=== PATIENT | female | born 1955 | race Caucasian/White ===

== ENCOUNTER → 2018-01-01 | Outpatient (REF) | payer OTHER ==
[2018-01-01 14:17] LABS: BASO % 0.7 % (0.0-1.0); EOS # 0.1 10^3/uL (0.0-0.50); EOS % 2.4 % (0.0-3.0); HEMATOCRIT 44.7 % (36.0-47.0); HEMOGLOBIN 14.4 g/dl (12.0-15.5); IMMATURE GRANULOCYTE % 0.2 % (0-3.0); LYMPH # 0.7 10^3/uL (1.5-4.5); LYMPH % 16.1 % (24.0-44.0); MEAN CORPUSCULAR HEMOGLOBIN 30.3 pg (27.0-33.0); MEAN CORPUSCULAR HGB CONC 32.2 g/dl (32.0-36.5); MEAN CORPUSCULAR VOLUME 93.9 fl (80.0-96.0); MONO # 0.5 10^3/uL (0.0-0.8); MONO % 9.8 % (0.0-5.0); NEUTROPHILS # 3.3 10^3/uL (1.8-7.7); NEUTROPHILS % 70.8 % (36.0-66.0); PLATELET COUNT, AUTOMATED 233 10^3/uL (150-450); RED BLOOD COUNT 4.76 10^6/uL (4.00-5.40); RED CELL DISTRIBUTION WIDTH 12.8 % (11.5-14.5); WHITE BLOOD COUNT 4.6 10^3/uL (4.0-10.0)
[2018-01-01 15:04] LABS: ALBUMIN 4.3 GM/DL (3.2-5.2); ALBUMIN/GLOBULIN RATIO 1.48 (1.00-1.93); ALKALINE PHOSPHATASE 76 U/L (45-117); ALT/SGPT 19 U/L (12-78); ANION GAP 6 MEQ/L (8-16); AST/SGOT 16 U/L (7-37); BILIRUBIN,TOTAL 0.3 MG/DL (0.2-1.0); BLOOD UREA NITROGEN 14 MG/DL (7-18); CALCIUM LEVEL 9.4 MG/DL (8.8-10.2); CARBON DIOXIDE LEVEL 29 MEQ/L (21-32); CHLORIDE LEVEL 104 MEQ/L (98-107); FOLATE 12.3 NG/ML; FREE THYROXINE INDEX 2.2 % (1.3-4.8); GLOMERULAR FILTRATION RATE > 60.0 (>45); GLUCOSE, FASTING 96 MG/DL (70-100); POTASSIUM SERUM 4.6 MEQ/L (3.5-5.1); RHEUMATOID FACTOR QUANT < 10.0 IU/ML (<15.0); SODIUM LEVEL 139 MEQ/L (136-145); T UPTAKE 31 % (30-39); THYROID STIMULATING HORMONE 0.762 uIU/ML (0.358-3.740); THYROXINE (T4) 7.1 UG/DL (4.5-12.0); TOTAL PROTEIN 7.2 GM/DL (6.4-8.2); VITAMIN B12 LEVEL 254 PG/ML
[2018-01-01 15:37] LABS: ERYTHROCYTE SEDIMENTATION RATE 2 mm/hr (0-30)
[2018-01-01 17:13] LABS: ESTIMATED AVERAGE GLUCOSE 108 MG/DL (60-110); HEMOGLOBIN A1c 5.4 %
[2018-01-06 09:11] LABS: DRVV SCREEN 32.1 SEC
[2018-01-06 09:14] LABS: PTT LUPUS TYPE ANTICOAG SCREEN 0.8 (0-1.2)
[2018-01-06 09:51] LABS: ALBUMIN 4.59 GM/DL (3.29-5.55); ALBUMIN % 63.7 % (55.8-66.1); ALPHA-1-GLOBULIN % 3.9 % (2.9-4.9); ALPHA-1-GLOBULINS 0.28 GM/DL (0.17-0.41); ALPHA-2-GLOBULINS 0.71 GM/DL (0.42-0.99); ALPHA-2-GLOBULINS % 9.9 % (7.1-11.8); BETA-1-GLOBULINS % 5.6 % (4.7-7.2); BETA-2-GLOBULINS 0.33 GM/DL (0.19-0.55); BETA-2-GLOBULINS % 4.6 % (3.2-6.5); GAMMA GLOBULIN % 12.3 % (11.1-18.8); GAMMA GLOBULINS 0.89 GM/DL (0.65-1.58)
[2018-01-07 00:07] LABS: ANCA-ATYPICAL <1:20 titer (Neg:<1:20); ANTI DOUBLE STRAND-DNA AB 3 IU/mL (0-9); ANTINUCLEAR ANTIBODIES DIRECT Positive (Negative); CYTOPLASMIC NEUTROP AB ANCA-C <1:20 titer (Neg:<1:20); PERINUCLEAR AB ANCA-P <1:20 titer (Neg:<1:20); RNP ANTIBODIES 2.1 AI (0.0-0.9); SJOGREN'S ANTI SS-A <0.2 AI (0.0-0.9); SJOGREN'S ANTI SS-B <0.2 AI (0.0-0.9); SMITH ANTIBODIES <0.2 AI (0.0-0.9); VITAMIN B1 LEVEL WHOLE BLOOD 104.9 nmol/L (66.5-200.0); VITAMIN B6,PYRIDOXAL PHOSPHATE 3.8 ug/L (2.0-32.8); VITAMIN E(ALPHA TOCOPHEROL) 9.7 mg/L (9.0-29.0); VITAMIN E(GAMMA TOCOPHEROL) 0.7 mg/L (0.5-4.9)
== END ==
LOC: M LABNEURO 09:22
DX: G62.9 Polyneuropathy, unspecified (principal)

== ENCOUNTER 2018-01-03 07:55 | Emergency (ER) | payer OTHER ==
[2018-01-03 08:37] LABS: BASO % 0.3 % (0.0-1.0); EOS # 0.1 10^3/uL (0.0-0.50); EOS % 1.5 % (0.0-3.0); HEMATOCRIT 41.9 % (36.0-47.0); HEMOGLOBIN 14.2 g/dl (12.0-15.5); IMMATURE GRANULOCYTE % 0.5 % (0-3.0); LYMPH # 0.8 10^3/uL (1.5-4.5); LYMPH % 12.7 % (24.0-44.0); MEAN CORPUSCULAR HEMOGLOBIN 30.1 pg (27.0-33.0); MEAN CORPUSCULAR HGB CONC 33.9 g/dl (32.0-36.5); MEAN CORPUSCULAR VOLUME 88.8 fl (80.0-96.0); MONO # 0.5 10^3/uL (0.0-0.8); MONO % 7.6 % (0.0-5.0); NEUTROPHILS # 5.1 10^3/uL (1.8-7.7); NEUTROPHILS % 77.4 % (36.0-66.0); PLATELET COUNT, AUTOMATED 233 10^3/uL (150-450); RED BLOOD COUNT 4.72 10^6/uL (4.00-5.40); RED CELL DISTRIBUTION WIDTH 12.2 % (11.5-14.5); WHITE BLOOD COUNT 6.6 10^3/uL (4.0-10.0)
[2018-01-03] MEDS: diphenhydrAMINE INJ 50MG/ML VIAL (J1200) IV (08:37)
[2018-01-03] MEDS: METOCLOPRAMIDE INJ 10MG/2ML VIAL (J2765) IV (08:37)
[2018-01-03] MEDS: NS 1,000 ML IV (08:38)
[2018-01-03 09:06] LABS: ALBUMIN/GLOBULIN RATIO 1.38 (1.00-1.93); ALKALINE PHOSPHATASE 68 U/L (45-117); ALT/SGPT 21 U/L (12-78); ANION GAP 10 MEQ/L (8-16); AST/SGOT 16 U/L (7-37); BILIRUBIN,TOTAL 0.5 MG/DL (0.2-1.0); BLOOD UREA NITROGEN 8 MG/DL (7-18); CALCIUM LEVEL 9.5 MG/DL (8.8-10.2); CARBAMAZEPINE (TEGRETOL) LEVEL 4.2 UG/ML (4.0-10.0); CARBON DIOXIDE LEVEL 26 MEQ/L (21-32); CHLORIDE LEVEL 96 MEQ/L (98-107); CREATININE FOR GFR 0.78 MG/DL (0.55-1.30); GLOMERULAR FILTRATION RATE > 60.0 (>45); GLUCOSE, FASTING 117 MG/DL (70-100); SODIUM LEVEL 132 MEQ/L (136-145); TOTAL PROTEIN 6.9 GM/DL (6.4-8.2)
[2018-01-03] MEDS: KETOROLAC 30 MG/ML VIAL (J1885) IV (09:36)
[2018-01-03 09:51] LABS: ERYTHROCYTE SEDIMENTATION RATE 2 mm/hr (0-30)
== END 2018-01-03 11:15 | disposition home or self-care (01) ==
LOC: M ED 07:55
DX: G43.909 Migraine, unspecified, not intractable, without status migrainosus (principal); Z88.0 Allergy status to penicillin
CPT/HCPCS: J1200

== ENCOUNTER → 2019-01-05 | Outpatient (CLI) | payer OTHER ==
[~2019-01-05] MED LIST: CARB10TACH; NABU-119
[2019-01-05 14:53] LABS: BASO # 0.1 10^3/uL (0.0-0.2); BASO % 0.8 % (0.0-1.0); EOS # 0.1 10^3/uL (0.0-0.5); EOS % 2.3 % (0.0-3.0); HEMATOCRIT 45.1 % (36.0-47.0); HEMOGLOBIN 14.4 g/dl (12.0-15.5); LYMPH # 1.7 10^3/uL (1.5-5.0); LYMPH % 28.5 % (24.0-44.0); MEAN CORPUSCULAR HEMOGLOBIN 29.6 pg (27.0-33.0); MEAN CORPUSCULAR HGB CONC 31.9 g/dl (32.0-36.5); MEAN CORPUSCULAR VOLUME 92.6 fl (80.0-96.0); MONO # 0.5 10^3/uL (0.0-0.8); MONO % 8.3 % (0.0-5.0); NEUTROPHILS # 3.6 10^3/uL (1.5-8.5); NEUTROPHILS % 59.6 % (36.0-66.0); PLATELET COUNT, AUTOMATED 274 10^3/uL (150-450); RED BLOOD COUNT 4.87 10^6/uL (4.00-5.40)
[2019-01-05 15:29] LABS: ERYTHROCYTE SEDIMENTATION RATE 5 mm/hr (0-30)
[2019-01-05 15:30] LABS: ALT/SGPT 18 U/L (12-78); BILIRUBIN,TOTAL 0.4 MG/DL (0.2-1.0); BLOOD UREA NITROGEN 12 MG/DL (7-18); CALCIUM LEVEL 9.8 MG/DL (8.8-10.2); CARBON DIOXIDE LEVEL 31 MEQ/L (21-32); CHLORIDE LEVEL 106 MEQ/L (98-107); CREATININE FOR GFR 1.08 MG/DL (0.55-1.30); GLOMERULAR FILTRATION RATE 54.5 (>45); GLUCOSE, FASTING 85 MG/DL (70-100); POTASSIUM SERUM 4.2 MEQ/L (3.5-5.1); RHEUMATOID FACTOR QUANT < 10.0 IU/ML (<15.0); SODIUM LEVEL 140 MEQ/L (136-145); THYROID STIMULATING HORMONE 0.641 uIU/ML (0.358-3.740); TOTAL PROTEIN 7.4 GM/DL (6.4-8.2)
[2019-01-05 15:33] LABS: TOTAL 25(OH) VITAMIN D 50.2 NG/ML (30.0-100.0)
[2019-01-07 14:51] LABS: ANTI DOUBLE STRAND-DNA AB 2 IU/mL (0-9); ANTINUCLEAR ANTIBODIES DIRECT Positive (Negative); RNP ANTIBODIES 1.6 AI (0.0-0.9); SJOGREN'S ANTI SS-A <0.2 AI (0.0-0.9); SJOGREN'S ANTI SS-B <0.2 AI (0.0-0.9); SMITH ANTIBODIES <0.2 AI (0.0-0.9)
== END ==
LOC: M LAB 14:14
PROVIDERS: ATTEND Psychiatry & Neurology Neurology
DX: R51 Headache (principal)

== ENCOUNTER 2019-11-04 17:51 | Inpatient (IN) | payer OTHER ==
[~2019-11-04] VITALS: Ht 167.6 cm; Wt 63.6 kg
[~2019-11-04 17:51] MED LIST changes: -NABU-119; +NABU-53
[2019-11-04] MEDS ORDERED: AMOX875T (18:04)
[2019-11-04] MEDS ORDERED: FLUTISP (18:04)
[2019-11-04] MEDS ORDERED: GABA-845 PO (18:04)
[2019-11-04] MEDS ORDERED: ONDANSETRON 4MG/2ML VIAL IV ONE (19:00)
[2019-11-04] MEDS ORDERED: diphenhydrAMINE 50MG/ML VIAL (J1200) IV ONE (19:00)
[2019-11-04] MEDS ORDERED: NS 1,000 ML IV ONE (19:00)
[2019-11-04] MEDS ORDERED: KETOROLAC 30 MG/ML 1ML VIAL IV ONE (19:05)
[2019-11-04 19:48] LABS: BASO % 0.2 % (0.0-1.0); EOS % 0.6 % (0.0-3.0); HEMATOCRIT 42.9 % (36.0-47.0); HEMOGLOBIN 14.5 g/dl (12.0-15.5); LYMPH % 5.5 % (24.0-44.0); MEAN CORPUSCULAR HEMOGLOBIN 29.9 pg (27.0-33.0); MEAN CORPUSCULAR HGB CONC 33.8 g/dl (32.0-36.5); MEAN CORPUSCULAR VOLUME 88.5 fl (80.0-96.0); MONO % 7.5 % (0.0-5.0); NEUTROPHILS % 85.7 % (36.0-66.0); PLATELET COUNT, AUTOMATED 226 10^3/uL (150-450); RED BLOOD COUNT 4.85 10^6/uL (4.00-5.40); WHITE BLOOD COUNT 12.3 10^3/uL (4.0-10.0)
[2019-11-04 19:49] LABS: EOS # 0.1 10^3/uL (0.0-0.5); LYMPH # 0.7 10^3/uL (1.5-5.0); MONO # 0.9 10^3/uL (0.0-0.8); NEUTROPHILS # 10.6 10^3/uL (1.5-8.5)
[2019-11-04 20:15] LABS: ALBUMIN 3.1 GM/DL (3.2-5.2); ALT/SGPT 17 U/L (12-78); BILIRUBIN,DIRECT 0.2 MG/DL (0.0-0.2); BILIRUBIN,TOTAL 0.6 MG/DL (0.2-1.0); BLOOD UREA NITROGEN 8 MG/DL (7-18); CALCIUM LEVEL 8.8 MG/DL (8.8-10.2); CARBON DIOXIDE LEVEL 27 MEQ/L (21-32); CHLORIDE LEVEL 95 MEQ/L (98-107); CREATININE FOR GFR 0.63 MG/DL (0.55-1.30); GLOMERULAR FILTRATION RATE > 60.0 (>45); GLUCOSE, FASTING 127 MG/DL (70-100); LIPASE 59 U/L (73-393); POTASSIUM SERUM 4.3 MEQ/L (3.5-5.1); SODIUM LEVEL 128 MEQ/L (136-145); TOTAL PROTEIN 6.5 GM/DL (6.4-8.2)
[2019-11-04] MEDS ORDERED: ISOVUE-370 76% 100ML VIAL As Ordered ONE (20:30)
--- NOTE | 2019-11-04 21:27 | REPVR ---
PROCEDURE INFORMATION: Exam: CT Head Without Contrast Exam date and time: 11/04/2019 8:47 PM Age: 64 years old Clinical indication: Pain; Headache; Additional info: Inc headache TECHNIQUE: Imaging protocol: Computed tomography of the head without contrast. Radiation optimization: All CT scans at this facility use at least one of these dose optimization techniques: automated exposure control; mA and/or kV adjustment per patient size (includes targeted exams where dose is matched to clinical indication); or iterative reconstruction. COMPARISON: CT Head without contrast 01/03/2018 8:25 AM FINDINGS: Brain: There is no acute cortical infarction, intracranial hemorrhage or mass. Ventricles: No ventriculomegaly. Bones/joints: Unremarkable. No acute fracture. Sinuses: Visualized sinuses are unremarkable. No fluid levels. Mastoid air cells: Visualized mastoid air cells are well aerated. Soft tissues: Unremarkable. IMPRESSION: No acute intracranial abnormality. Electronically signed by: Jeimy Franklin On 11/04/2019 21:27:05 PM
--- NOTE | 2019-11-04 21:43 | REPVR ---
PROCEDURE INFORMATION: Exam: CT Abdomen And Pelvis With Contrast Exam date and time: 11/04/2019 8:47 PM Age: 64 years old Clinical indication: Abdominal pain; Localized; Right lower quadrant (rlq); Additional info: Rlq pain TECHNIQUE: Imaging protocol: Computed tomography of the abdomen and pelvis with intravenous contrast. Radiation optimization: All CT scans at this facility use at least one of these dose optimization techniques: automated exposure control; mA and/or kV adjustment per patient size (includes targeted exams where dose is matched to clinical indication); or iterative reconstruction. Contrast material: ISOVUE 370; Contrast volume: 100 ml; Contrast route: INTRAVENOUS (IV); COMPARISON: No relevant prior studies available. FINDINGS: Lungs: There is interstitial prominence and pleuroparenchymal scarring at the lung bases. No pleural effusion. Liver: There are no focal liver lesions. There is mild periportal edema. Gallbladder and bile ducts: There is marked distension of the gallbladder with wall thickening. No radiopaque calculi are apparent. There is pericholecystic inflammation. The common bile duct is enlarged to 7.5 mm in width. Diffuse soft tissue density material is seen in the alka hepatis in there is low density in the head of the pancreas. The inflammation also surrounds the C sweep of the duodenum. Pancreas: See "Gallbladder and bile ducts" finding. Spleen: The spleen is normal. Adrenals: The adrenal glands are unremarkable. Kidneys and ureters: The kidneys are unremarkable however there is right perinephric stranding. Stomach and bowel: There is no evidence of intestinal obstruction. Appendix: The appendix is unremarkable. Intraperitoneal space: There is fluid in the right pericolic gutter. Vasculature: There is no evidence of an infrarenal abdominal aortic aneurysm. The arteries demonstrates diffuse mild atherosclerotic calcification. Lymph nodes: No enlarged lymph nodes. Bladder: The bladder is unremarkable. Reproductive: Unremarkable as visualized. Bones/joints: No significant skeletal lesions. Soft tissues: There is a fat-containing umbilical hernia. IMPRESSION: There is distension of the gallbladder and thickening of the gallbladder wall and pericholecystic inflammation extending throughout the alka hepatis which could be due to acute acalculous cholecystitis however there could be an obstructing lesion at the Ampulla of Vater or within the distal biliary system, pancreatic head or duodenum which all appear to be involved in the inflammatory/infiltrative process. Electronically signed by: Jeimy Franklin On 11/04/2019 21:42:46 PM
--- NOTE | 2019-11-04 23:29 | REPVR ---
PROCEDURE INFORMATION: Exam: US Abdomen, Limited; Right Upper Quadrant Exam date and time: 11/04/2019 10:47 PM Age: 64 years old Clinical indication: Abdominal pain; Epigastric; Additional info: Right abd pain TECHNIQUE: Imaging protocol: US abdomen. Real time ultrasound with image documentation. Limited exam focused on the right upper quadrant. COMPARISON: CT ABD/PEL W/IV CONTRAST ONLY 11/04/2019 8:42 PM FINDINGS: Liver: There is uniform echogenicity of the liver. Gallbladder: There is distention of the gallbladder measuring 4.5 cm in AP dimension. There is thick sludge in the dependent portion of the gallbladder and suspect gravel-like gallstones. There is edema along the margins of the gallbladder. Recent CT examination demonstrates extreme edema along the gallbladder wall consistent with acute changes of cholecystitis. The CT also demonstrates very severe thickening of the duodenal C loop inseparable from the margin of gallbladder. This probably is the result of severe inflammation at the 1st portion of the duodenum. Possibility of erosion or severe ulceration in the region of the duodenal C loop is a definite concern. There is severe edema along the margins of the duodenal C loop and inseparable from the head of the pancreas. This produces mass effect on the head of the pancreas. Common bile duct: On the ultrasound the common bile duct measures 1 cm which is abnormally enlarged. This may be secondary to the severe inflammation at the ampula and 1st portion of the duodenum. Severe swelling and inflammation including phlegmon extends from the gallbladder and duodenal C loop inferiorly along the right psoas muscle. Lesion or ulceration 1st portion of the duodenum could be present. Right kidney: There is no evidence of hydronephrosis right kidney. IMPRESSION: 1. When comparing the ultrasound with the CT examination there is severe thickening and edema along the margins of the gallbladder consistent with acute changes of cholecystitis. Thick sludge with possible tiny gravel-like gallstones within the gallbladder. The margin of the gallbladder and duodenal C-loop are inseparable and there is gross thickening of the wall of the 1st portion of the duodenum. Severe inflammation of the duodenum or even a ulcer crater or mass lesion could be present. The severely thickened duodenum impresses on the head of the pancreas. The inflammation and phlegmon from this area extends along the right psoas muscle and infrarenal space. 2. The common bile duct is dilated at 1 cm and this may be secondary to partial obstruction by the massive amount of inflammation and swelling at the ampula and duodenum. Electronically signed by: Agustín Mcgrath On 11/04/2019 23:28:52 PM
[2019-11-05] MEDS ORDERED: AMPICILLIN SOD/SULBACTAM SOD 3 GM in D5W MINI-BAG PLUS 100 ML IV ONE (00:45)
--- NOTE | 2019-11-05 01:14 | HPEPDOC ---
[facility] Medical History & Physical Date of Admission Nov 05, 2019 Date of Service: Nov 05, 2019 Attending Physician: Blanca Morgan MD History and Physical CHIEF COMPLAINT: headache, back and abdominal pain HISTORY OF PRESENT ILLNESS: Patient is a 64 y/o F with PMH trigeminal neuralgia, hx of migraine headaches, rheumatoid arthritis who presented to ER with worsening neck, headache, right back and RU/RLQ pain since 11/01/19. She initially though back pain was soreness from gardening outside but when it persisted with the onset of headache and right face pain, she went to see her dentist. In the past, her trigeminal neuralgia has worsened with dental infections but her dentist ruled that out. He thought all her pains were 2/2 to trigeminal pain, neuropathic pain of some sort and headache 2/2 to sinus infection so he prescribed antibiotic. Along with the face, neck and headache pains she was also having concomitant abdominal pain, 7/10, constant relieved only with laying a certain way. She took home meds of gabapentin and carbamazepine for trigeminal neuralgia which helped with the face pain but headache, neck pain, abdominal pain persisted. Other associated symptoms include: decreased Po intake, increased constipation, nausea with several episodes of vomiting, weakness, sensitivity to light. Denies chest pain, shortness of breath, fevers, chills, vision changes. In the ER, VS were stable. Na 128, WBC 12.3, UA neg. CT abd/pelvis: questionable acute acalculous cholecystitis vs. obstructing lesion at ampulla of vater or within distal biliary system. US abd: changes of acute cholecystitis, severely thickened duodenum, inflammation from this area extends along right psoas muscle and infrarenal space. CBD inflammation 1 cm. GI was called and will see on the floor to determine if ERCP needed. Surgery service also called in ER and they feel GI will likely need to intervene first. Patient was admitted for acute cholecystitis, r/o obstruction and likely migraine headache. ROS: Negative except for what is mentioned above. PAST MEDICAL HISTORY: 1. Trigeminal neuralgia 2. History of migraine headaches 3. Rheumatoid arthritis PAST SURGICAL HISTORY: 1. Ovary cyst removal 2. Right knee surgery SOCIAL HISTORY: Denies smoking, illicit drug use. Social alcohol use rarely. Lives with her locally. Retired. PCP- [facility], neurology-Dr. Bradley FAMILY HISTORY: Father: recurrent diverticulitis. at 83 y/o Mother: arthritis. at 97 y/o ALLERGIES: Please see below. HOME MEDICATIONS: Please see below. PHYSICAL EXAMINATION: VITAL SIGNS: Stable, see below GENERAL APPEARANCE: Appears uncomfortable in bed, holding hands over eyes, communicates well HEENT: AT/NC, photosensitivity to light on exam but PERRLA, EOM intact, dry oral mucosa CARDIOVASCULAR: S1S2 +, no M/R/G LUNGS: CTAB, no W/R/R ABDOMEN: + carrillo's sign, BS + in 4 quadrants, tender to palpation around right flank, nondistended, soft MUSCULOSKELETAL: No atrophy of extremities INTEGUMENTARY: normal skin turgor, no rashes EXTREMITIES: No edema, cyanosis or clubbing. Pulses + in all ext NEUROLOGICAL: CN 2-12 intact, no focal deficits PSYCHIATRIC: Mood and affect appropriate LABORATORY DATA: See below. IMAGING: CT abd/pelvis: There is distension of the gallbladder and thickening of the gallbladder wall and pericholecystic inflammation extending throughout the alka hepatis which could be due to acute acalculous cholecystitis however there could be an obstructing lesion at the Ampulla of Vater or within the distal biliary system, pancreatic head or duodenum which all appear to be involved in the inflammatory/infiltrative process. US abd: 1. When comparing the ultrasound with the CT examination there is severe thickening and edema along the margins of the gallbladder consistent with acute changes of cholecystitis. Thick sludge with possible tiny gravel-like gallstones within the gallbladder. The margin of the gallbladder and duodenal C-loop are inseparable and there is gross thickening of the wall of the 1st portion of the duodenum. Severe inflammation of the duodenum or even a ulcer crater or mass lesion could be present. The severely thickened duodenum impresses on the head of the pancreas. The inflammation and phlegmon from this area extends along the right psoas muscle and infrarenal space. 2. The common bile duct is dilated at 1 cm and this may be secondary to partial obstruction by the massive amount of inflammation and swelling at the ampula and duodenum. ASSESSMENT: 64 y/o F with PMH trigeminal neuralgia, hx of migraine headaches, rheumatoid arthritis who was admitted for acute cholecystitis, r/o bilary obstruction and headache 2/2 to dehydration and possible migraine. PLAN: 1. Abdominal pain likely 2/2 to acute cholecystitis, r/o obstructive biliary cause -WBC 12.3, CT abd/pelvis and US above. Afebrile -Pt has allergy to IM PCN only she states- patient is not likely truly allergic if she can tolerate IM PCN. Starting on Zosyn IV. -GI and surgery are both consulted, they will see today -F/u BCx -Toradol, morphine PRN for pain, IVFs, NPO until cleared by consultation services 2. Headache likely multifactorial to migraine but also dehydration -IV toradol, IVFs 3. Hyponatremia likely 2/2 to dehydration. -Has not eaten or drank much since 11/01/19 -F/u urine osmol, urine sodium, daily labs -IVFs at 125 cc/hr 4. Trigeminal neuralgia -Face pain improved since taking PO carbamazepine, gabapentin -Can decide to resume when taking PO 5. Right back pain likley 2/2 to inflammation of right psoas muscle and infrarenal space seen on US abd -Toradol IV, IVFs, OOBTC TID and with meals -PT/OT when acute process improves 6. GI px. -PPI IV 7. DVT px -Enoxaparin daily DISPOSITION: GI and surgery to both see patient today, will decide what patient needs going forward. PT/OT when cleared. Plan is discharge home when medically improved. Vital Signs Vital Signs Date Time Temp Pulse Resp B/P (MAP) Pulse Ox O2 Delivery O2 Flow Rate FiO2 11/04/19 22:26 98.1 86 18 135/72 (93) 98 Room Air Laboratory Data Labs 24H Laboratory Tests 2 11/04/19 19:33: Immature Granulocyte % (Auto) 0.5, Neutrophils (%) (Auto) 85.7H, Lymphocytes (%) (Auto) 5.5L, Monocytes (%) (Auto) 7.5H, Eosinophils (%) (Auto) 0.6, Basophils (%) (Auto) 0.2, Neutrophils # (Auto) 10.6H, Lymphocytes # (Auto) 0.7L, Monocytes # (Auto) 0.9H, Eosinophils # (Auto) 0.1, Basophils # (Auto) 0.0, Nucleated Red Blood Cells % (auto) 0.0, Anion Gap 6L, Glomerular Filtration Rate > 60.0, Calcium Level 8.8, Total Bilirubin 0.6, Direct Bilirubin 0.2, Aspartate Amino Transf (AST/SGOT) 10, Alanine Aminotransferase (ALT/SGPT) 17, Alkaline Phosphatase 77, Total Protein 6.5, Albumin 3.1L, Albumin/Globulin Ratio 0.9L, Lipase 59L 11/04/19 21:17: Urine Color STRAW, Urine Appearance CLEAR, Urine pH 7.0, Urine Specific [place] 1.013, Urine Protein NEGATIVE, Urine Glucose (UA) NEGATIVE, Urine Ketones TRA CEH, Urine Blood NEGATIVE, Urine Nitrite NEGATIVE, Urine Bilirubin NEGATIVE, Urine Urobilinogen 0.2, Urine Leukocyte Esterase NEGATIVE, Urine WBC (Auto) 0, Urine RBC (Auto) 2, Urine Hyaline Casts (Auto) 0, Urine Bacteria (Auto) NEGATIVE, Urine Squamous Epithelial Cells 0, Urine Sperm (Auto) CBC/BMP Laboratory Tests 11/04/19 19:33 Home Medications Scheduled Gabapentin (Gabapentin) 400 Mg Capsule, 300 MG PO BID Miscellaneous Medications Amoxicillin (Amoxicillin) 875 Mg Tablet Carbamazepine (Carbamazepine) 100 Mg Chew Fluticasone Propionate (Fluticasone Propionate) 16 Gm [place].susp Nabumetone (Nabumetone) 750 Mg Tab Allergies Coded Allergies: Penicillins (Verified Allergy, Intermediate, RASH, 11/04/19) A-FIB/CHADSVASC A-FIB History Current/History of A-Fib/PAF?: No Current PO Anticoag Therapy: No Age/Risk Factor Scoring CHADSVASC: CHADSVASC Response (Comments) Value Age Risk Factor Age < 65 years old 0 Gender Risk Factor Female 1 Hx of CHF No 0 Hx of HTN No 0 Hx of Stroke/TIA/or VTE No 0 Hx of Diabetes No 0 Hx of Vascular Disease No 0 Total 1 Treatment Treatment ordered: Other Other anticoagulant ordered: enoxaparin Blanca Morgan MD Nov 05, 2019 01:14
[2019-11-05] MEDS ORDERED: NS 1,000 ML IV SCH (01:15)
[2019-11-05] MEDS ORDERED: KETOROLAC 30 MG/ML 1ML VIAL IV PRN (02:15)
[2019-11-05] MEDS ORDERED: MORPHINE 2 MG/ML 1ML VIAL (J2270) IV PRN ×2 (02:15→11:30)
[2019-11-05] MEDS: NS 1,000 ML IV SCH ×4 (02:19→12:11)
[2019-11-05 02:30] VITALS: BP 134/68
[2019-11-05] MEDS ORDERED: CARB10TACH PO (03:35)
[2019-11-05] MEDS ORDERED: GABA-843 PO (03:35)
[2019-11-05] MEDS ORDERED: FLON1SPR (03:35)
[2019-11-05] MEDS ORDERED: NABU-53 PO (03:35)
[2019-11-05] MEDS ORDERED: AMOX875T PO (03:35)
[2019-11-05 03:41] LABS: HEMATOCRIT 40.9 % (36.0-47.0); HEMOGLOBIN 13.2 g/dl (12.0-15.5); MEAN CORPUSCULAR HEMOGLOBIN 29.4 pg (27.0-33.0); MEAN CORPUSCULAR HGB CONC 32.3 g/dl (32.0-36.5); MEAN CORPUSCULAR VOLUME 91.1 fl (80.0-96.0); PLATELET COUNT, AUTOMATED 197 10^3/uL (150-450); RED BLOOD COUNT 4.49 10^6/uL (4.00-5.40); WHITE BLOOD COUNT 10.1 10^3/uL (4.0-10.0)
[2019-11-05] MEDS: ONDANSETRON 4MG/2ML VIAL IV SCH ×4 (04:11→20:09)
[2019-11-05 04:19] LABS: ALBUMIN 2.8 GM/DL (3.2-5.2); ALT/SGPT 14 U/L (12-78); BILIRUBIN,TOTAL 0.3 MG/DL (0.2-1.0); BLOOD UREA NITROGEN 6 MG/DL (7-18); CALCIUM LEVEL 8.4 MG/DL (8.8-10.2); CARBON DIOXIDE LEVEL 26 MEQ/L (21-32); CHLORIDE LEVEL 105 MEQ/L (98-107); CREATININE FOR GFR 0.71 MG/DL (0.55-1.30); GLOMERULAR FILTRATION RATE > 60.0 (>45); GLUCOSE, FASTING 96 MG/DL (70-100); POTASSIUM SERUM 4.2 MEQ/L (3.5-5.1); SODIUM LEVEL 135 MEQ/L (136-145); TOTAL PROTEIN 6.1 GM/DL (6.4-8.2)
[2019-11-05 06:00] VITALS: BP 136/72
[2019-11-05] MEDS: PANTOPRAZOLE 40MG VIAL (C9113 PER 1) IV SCH (08:56)
[2019-11-05] MEDS: PIPERACILLIN/TAZOBACTAM SOD 3.375 GM in D5W MINI-BAG PLUS 50 ML IV SCH ×3 (08:56→20:08)
[2019-11-05] MEDS: ENOXAPARIN 40MG/0.4ML SYRINGE (J1650 PER 10MG) SC SCH (08:57)
--- NOTE | 2019-11-05 10:51 | CR.PDOC ---
General Surgery Consultation Date of Consultation 11/05/19 History and Physical CONSULT REPORT FOR: hospitalist service REASON FOR CONSULTATION: abdominal pain HISTORY OF PRESENT ILLNESS: I was asked to consult on Ms. Quiñones who is a 64-year-old female who presented to the emergency room last night with a 4 day history of right-sided right flank and back pain, nausea, retching and vomiting. She reports she was in her usual state of health Friday evening when all of a sudden she had severe right sided abdominal pain that she describes as sharp and stabbing where her whole right side was hurting radiating to her flank and back up to her right scapular area. She was uncomfortable throughout the evening, was nauseated. Morning of Friday seems to be worse and she was not able to tolerate any oral intake and was throwing up everything she drank for 8. She denies fevers or chills. She denies any sick contacts. She denies any prior episodes of similar symptoms. She felt slightly better on Friday on once evening was again having nausea and vomiting. Concomitantly she was having exacerbation of her trigeminal neuralgia and she saw her dentist thinking she might be having some tooth infection and this was ruled out by her dentist. By afternoon she continues to feel bad and thus she presented to the emergency room. In the arch was worked up and was found to have significant inflammation involving her right side abdomen including that of the gallbladder pancreas duodenum and along the right side of the right psoas muscle. No free air was noted. No stones noted on the gallbladder. She was subsequently admitted, hydrated. This morning she reports she was feeling moderately better with her headaches improved as well as to the right-sided abdominal pain though she still feels the discomfort. She is feeling slightly hungry and thinking she might be able to tolerate slowly some liquids. Her nausea has mostly gone away. She has no history of peptic ulcers. She reports a history of diverticulitis and has had prior colonoscopies but no upper endoscopies. She takes naproxen for musculoskeletal pain and takes this once daily. She is not on any antiulcer therapy together with this. She denies any postprandial biliary colic pain, has occasional reflux but denies any heartburn symptoms, evening brash-like sympt oms. She does not smoke and did not drink any alcohol the past week. Patient is a 64 y/o F with PMH trigeminal neuralgia, hx of migraine headaches, rheumatoid arthritis who presented to ER with worsening neck, headache, right back and RU/RLQ pain since 11/01/19. She initially though back pain was soreness from gardening outside but when it persisted with the onset of headache and right face pain, she went to see her dentist. In the past, her trigeminal neuralgia has worsened with dental infections but her dentist ruled that out. He thought all her pains were 2/2 to trigeminal pain, neuropathic pain of some sort and headache 2/2 to sinus infection so he prescribed antibiotic. Along with the face, neck and headache pains she was also having concomitant abdominal pain, 09/02, constant relieved only with laying a certain way. She took home meds of gabapentin and carbamazepine for trigeminal neuralgia which helped with the face pain but headache, neck pain, abdominal pain persisted. Other associated symptoms include: decreased Po intake, increased constipation, nausea with several episodes of vomiting, weakness, sensitivity to light. Denies chest pain, shortness of breath, fevers, chills, vision changes. In the ER, VS were stable. Na 128, WBC 12.3, UA neg. CT abd/pelvis: questionable acute acalculous cholecystitis vs. obstructing lesion at ampulla of vater or within distal biliary system. US abd: changes of acute cholecystitis, severely thickened duodenum, inflammation from this area extends along right psoas muscle and infrarenal space. CBD inflammation 1 cm. GI was called and will see on the floor to determine if ERCP needed. Surgery service also called in ER and they feel GI will likely need to intervene first. Patient was admitted for acute cholecystitis, r/o obstruction and likely migraine headache. PAST MEDICAL HISTORY: 1. Trigeminal neuralgia 2. History of migraine headaches 3. Rheumatoid arthritis PAST SURGICAL HISTORY: 1. Ovary cystectomy 2. Right knee surgery SOCIAL HISTORY: Denies smoking, illicit drug use. Social alcohol use rarely. Lives with her locally. Retired. PCP- [facility], neurology-Dr. Bradley FAMILY HISTORY: Father: recurrent diverticulitis. at 83 y/o Mother: arthritis. at 97 y/o ALLERGIES: Please see below. HOME MEDICATIONS: Please see below. PHYSICAL EXAMINATION: VITAL SIGNS: Stable, see below GENERAL APPEARANCE: Appears uncomfortable in bed, holding hands over eyes, communicates well HEENT: AT/NC, photosensitivity to light on exam but PERRLA, EOM intact, dry oral mucosa CARDIOVASCULAR: S1S2 +, no M/R/G LUNGS: CTAB, no W/R/R ABDOMEN: + camargo's sign, BS + in 4 quadrants, tender to palpation around right flank, nondistended, soft MUSCULOSKELETAL: No atrophy of extremities INTEGUMENTARY: normal skin turgor, no rashes EXTREMITIES: No edema, cyanosis or clubbing. Pulses + in all ext NEUROLOGICAL: CN 2-12 intact, no focal deficits PSYCHIATRIC: Mood and affect appropriate LABORATORY DATA: See below. HOME MEDICATIONS: Please see below. REVIEW OF SYSTEMS: GENERAL: Her current abdominal complaints are acute in nature and was in her usual state of health up until Friday evening. She denies any abnormal weight loss. No fevers or chills. She reports she was checking her pulse oximeter she had 1 home, was afraid that she was coming down with Covid but no sick contacts no fevers or chills, myalgia reported HEENT: Denies blurred vision and double vision. Denies ear symptoms. Denies hoarseness. NECK: Denies any neck pain CARDIOVASCULAR: Denies chest pain and palpitations. MUSCULOSKELETAL: Has history of rheumatoid arthritis mainly treated with naproxen, denies recent exacerbation. SKIN: Denies rash. NEUROLOGIC: Denies headache, stroke and transient ischemic attack. PSYCHIATRIC: Denies anxiety and depression. ENDOCRINE: Denies thyroid disease. HEMATOLOGY/ONCOLOGY: Denies bleeding or clotting disorder.. PULMONARY: Denies chronic cough, dyspnea and wheezing. GASTROINTESTINAL: See HPI. GENITOURINARY: Denies dysuria, frequency, hematuria and nocturia. ENDOCRINE: Denies polydipsia, polyphagia, polyuria, heat or cold intolerance. INFECTIOUS: Denies any recent upper respiratory tract infection, UTI, need for use of antibiotics. NUTRITION: Reports poor appetite secondary to above symptoms. PHYSICAL EXAMINATION: VITALS SIGNS: Please see below. GENERAL APPEARANCE: Patient seen laying flat in bed, awake, alert and oriented, looks relatively comfortable.. SKIN: Warm and dry with no jaundice, no skin rashes. HEENT: Normocephalic, atraumatic. Bonney palpebral conjunctiva, anicteric sclerae. Lips and mucosa appear dry. NECK: Supple, no thyromegaly. No obvious jugular venous distention. LUNGS: Clear to auscultation bilaterally. No wheezing appreciated. HEART: No chest wall abnormalities. Regular rate and rhythm with no murmurs appreciated. ABDOMEN: Abdomen is minimally distended. Minimal tympany on percussion. No surgical scars, umbilical or groin herniations. On palpation nontender on the left side of the abdominal wall and some slight vague discomfort at palpation at the epigastric area, right upper quadrant area, right lower quadrant area, more tender over the right flank area. No rebound or guarding. No Camargo sign. EXTREMITIES: Extremities have no deformities. No edema identified ANCILLARIES: . LABORATORY DATA: Please see below. IMAGING STUDIES: . CT abd/pelvis: There is distension of the gallbladder and thickening of the gallbladder wall and pericholecystic inflammation extending throughout the alka hepatis which could be due to acute acalculous cholecystitis however there could be an obstructing lesion at the Ampulla of Vater or within the distal biliary system, pancreatic head or duodenum which all appear to be involved in the inflammatory/infiltrative process. US abd: 1. When comparing the ultrasound with the CT examination there is severe thickening and edema along the margins of the gallbladder consistent with acute changes of cholecystitis. Thick sludge with possible tiny gravel-like gallstones within the gallbladder. The margin of the gallbladder and duodenal C-loop are inseparable and there is gross thickening of the wall of the 1st portion of the duodenum. Severe inflammation of the duodenum or even a ulcer crater or mass lesion could be present. The severely thickened duodenum impresses on the head of the pancreas. The inflammation and phlegmon from this area extends along the right psoas muscle and infrarenal space. 2. The common bile duct is dilated at 1 cm and this may be secondary to partial obstruction by the massive amount of inflammation and swelling at the ampula and duodenum. IMPRESSION AND PLAN: Patient is a 40 history of right-sided abdominal pain which imaging shows either infectious or inflammatory process involving multiple right-sided intra- abdominal organs including the gallbladder, duodenum, head of the pancreas with some slight fluid extension on top of the right psoas. Given her history most likely about of acute pancreatitis. Differentials would be a peptic ulcer disease, cholecystitis though less likely given the extent of inflammation as cholecystitis would not necessarily enfold that much organ or have fluid tracking down the right psoas. She did come in with normal amylase and lipase, only a mild leukocytosis and normal LFTs. She currently is on Protonix 40 mg daily on Zosyn 3.375 g IV every 6 hours. He is feeling better so she must probab ly come in dehydrated. Given the improvement of her symptoms. Probably could try her on liquids after seen by gastroenterology if they do not have any plans of doing an upper endoscopy. If she continues to get better, would send her home plus or minus antibiotics and continue the workup as an outpatient including possibly repeat the ultrasound to look for small stones or sludge in the gallbladder as a possible reason for what I think was about of pancreatitis. Will follow her hospital course. Vital Signs Vital Signs Date Time Temp Pulse Resp B/P (MAP) Pulse Ox O2 Delivery O2 Flow Rate FiO2 11/05/19 06:00 97.7 83 18 136/72 (93) 98 Room Air I&Os I&O- Last 24 Hours up to 6 AM 11/05/19 06:00 Intake Total 1225 ml Output Total 850 ml Balance 375 ml Laboratory Data Labs 24H Laboratory Tests 2 11/04/19 19:33: Immature Granulocyte % (Auto) 0.5, Neutrophils (%) (Auto) 85.7H, Lymphocytes (%) (Auto) 5.5L, Monocytes (%) (Auto) 7.5H, Eosinophils (%) (Auto) 0.6, Basophils (%) (Auto) 0.2, Neutrophils # (Auto) 10.6H, Lymphocytes # (Auto) 0.7L, Monocytes # (Auto) 0.9H, Eosinophils # (Auto) 0.1, Basophils # (Auto) 0.0, Nucleated Red Blood Cells % (auto) 0.0, Anion Gap 6L, Glomerular Filtration Rate > 60.0, Calcium Level 8.8, Total Bilirubin 0.6, Direct Bilirubin 0.2, Aspartate Amino Transf (AST/SGOT) 10, Alanine Aminotransferase (ALT/SGPT) 17, Alkaline Phosphatase 77, Total Protein 6.5, Albumin 3.1L, Albumin/Globulin Ratio 0.9L, Lipase 59L 11/04/19 21:17: Urine Color STRAW, Urine Appearance CLEAR, Urine pH 7.0, Urine Specific Jackson 1.013, Urine Protein NEGATIVE, Urine Glucose (UA) NEGATIVE, Urine Ketones TRACEH, Urine Blood NEGATIVE, Urine Nitrite NEGATIVE, Urine Bilirubin NEGATIVE, Urine Urobilinogen 0.2, Urine Leukocyte Esterase NEGATIVE, Urine WBC (Auto) 0, Urine RBC (Auto) 2, Urine Hyaline Casts (Auto) 0, Urine Bacteria (Auto) NEGATIVE, Urine Squamous Epithelial Cells 0, Urine Sperm (Auto) 11/05/19 03:35: Nucleated Red Blood Cells % (auto) 0.0, Anion Gap 4L, Glomerular Filtration Rate > 60.0, Calcium Level 8.4L, Total Bilirubin 0.3, Aspartate Amino Transf (AST/SG OT) 10, Alanine Aminotransferase (ALT/SGPT) 14, Alkaline Phosphatase 72, Total Protein 6.1L, Albumin 2.8L, Albumin/Globulin Ratio 0.8L CBC/BMP Laboratory Tests 11/04/19 19:33 11/05/19 03:35 Microbiology Microbiology 11/05/19 Blood Culture, Received Pending 11/05/19 Blood Culture, Received Pending Home Medications Scheduled Amoxicillin (Amoxicillin) 875 Mg Tablet, 875 MG PO BID, (Reported) Nabumetone (Nabumetone) 750 Mg Tablet, 750 MG PO BID, (Reported) Scheduled PRN Carbamazepine (Carbamazepine) 100 Mg Tab.chew, 50 MG PO BID PRN for PAIN, (Reported) Fluticasone Propionate (Flonase Allergy Relief) 9.9 Ml Pitcher.susp, 1 SPRAY NA BID PRN for NASAL CONGESTION, (Reported) Gabapentin (Gabapentin) 300 Mg Capsule, 300 MG PO BID PRN for PAIN, (Reported) Allergies Coded Allergies: Penicillins (Verified Allergy, Intermediate, RASH, 11/04/19) LANETTE SIMMS MD Nov 05, 2019 08:47
[2019-11-05] MEDS ORDERED: PERCOCET 5MG/325MG TAB PO PRN (11:30)
[2019-11-05] MEDS ORDERED: GLUCOSE 4GM CHEW TABLET PO PRN (11:30)
[2019-11-05] MEDS ORDERED: DEXTROSE 50% 50 ML SYRINGE IV PRN (11:30)
[2019-11-05] MEDS ORDERED: GLUCAGON INJ 1MG VIAL SC PRN (11:30)
[2019-11-05 12:38] LABS: SODIUM,RANDOM URINE 40 MEQ/L
[2019-11-05 13:03] LABS: OSMOLALITY URINE 224 MOSM/KG (500-800)
[2019-11-05] MEDS: D5W/0.45% SODIUM CHLORIDE 1,000 ML IV SCH (13:11)
[2019-11-05 14:00] VITALS: BP 126/63
[2019-11-05] MEDS: MOM 30ML SUSPENSION UDC PO SCH ×3 (16:03→20:09)
[2019-11-05 22:00] VITALS: BP 127/73
[2019-11-05] MEDS ORDERED: MOM 30ML SUSPENSION UDC PO PRN (23:30)
[2019-11-06] MEDS: PIPERACILLIN/TAZOBACTAM SOD 3.375 GM in D5W MINI-BAG PLUS 50 ML IV SCH ×4 (01:24→20:27)
[2019-11-06] MEDS: ONDANSETRON 4MG/2ML VIAL IV SCH ×4 (01:24→20:27)
[2019-11-06] MEDS: D5W/0.45% SODIUM CHLORIDE 1,000 ML IV SCH (01:24)
[2019-11-06 05:52] LABS: HEMATOCRIT 37.2 % (36.0-47.0); HEMOGLOBIN 11.8 g/dl (12.0-15.5); MEAN CORPUSCULAR HEMOGLOBIN 29.3 pg (27.0-33.0); MEAN CORPUSCULAR HGB CONC 31.7 g/dl (32.0-36.5); MEAN CORPUSCULAR VOLUME 92.3 fl (80.0-96.0); PLATELET COUNT, AUTOMATED 211 10^3/uL (150-450); RED BLOOD COUNT 4.03 10^6/uL (4.00-5.40); WHITE BLOOD COUNT 6.8 10^3/uL (4.0-10.0)
[2019-11-06 06:00] VITALS: BP 115/58
[2019-11-06 06:01] LABS: ALBUMIN 2.5 GM/DL (3.2-5.2); ALT/SGPT 15 U/L (12-78); BILIRUBIN,TOTAL 0.2 MG/DL (0.2-1.0); BLOOD UREA NITROGEN 6 MG/DL (7-18); CALCIUM LEVEL 8.8 MG/DL (8.8-10.2); CARBON DIOXIDE LEVEL 27 MEQ/L (21-32); CHLORIDE LEVEL 111 MEQ/L (98-107); CREATININE FOR GFR 0.78 MG/DL (0.55-1.30); GLOMERULAR FILTRATION RATE > 60.0 (>45); GLUCOSE, FASTING 103 MG/DL (70-100); POTASSIUM SERUM 4.2 MEQ/L (3.5-5.1); SODIUM LEVEL 140 MEQ/L (136-145); TOTAL PROTEIN 5.8 GM/DL (6.4-8.2)
[2019-11-06] MEDS: PANTOPRAZOLE 40MG VIAL (C9113 PER 1) IV SCH (08:59)
[2019-11-06] MEDS: ENOXAPARIN 40MG/0.4ML SYRINGE (J1650 PER 10MG) SC SCH (08:59)
[2019-11-06] MEDS ORDERED: CYCLOBENZAPRINE 10MG TABLET PO ONE (10:00)
[2019-11-06 14:00] VITALS: BP 124/62
--- NOTE | 2019-11-06 16:00 | IPNPDOC ---
Date Seen The patient was seen on 11/06/19. Progress Note DR. CANTOR'S, GI, RECOMMENDATIONS: -MRCP TO EVALUATE AMPULLA OF VATER -NPO AFTER MIDNIGHT FRIDAY, FOR ERCP FRIDAY. VS, I&O, 24H, Fishbone Vital Signs/I&O Vital Signs Date Time Temp Pulse Resp B/P (MAP) Pulse Ox O2 Delivery O2 Flow Rate FiO2 11/06/19 14:00 97.8 79 18 124/62 (82) 100 Room Air I&O- Last 24 Hours up to 6 AM 11/06/19 06:00 Intake Total 3100 ml Output Total 2300 ml Balance 800 ml Laboratory Data 24H LABS Laboratory Tests 2 11/05/19 16:32: Bedside Glucose (Misc Panel) 102 11/06/19 05:11: Nucleated Red Blood Cells % (auto) 0.0, Anion Gap 2L, Glomerular Filtration Rate > 60.0, Calcium Level 8.8, Total Bilirubin 0.2, Aspartate Amino Transf (AST/SGOT) 10, Alanine Aminotransferase (ALT/SGPT) 15, Alkaline Phosphatase 69, Total Protein 5.8L, Albumin 2.5L, Albumin/Globulin Ratio 0.8L CBC/BMP Laboratory Tests 11/06/19 05:11 Microbiology Microbiology 11/05/19 Blood Culture - Preliminary, Resulted No growth after 24 hours . All specim... 11/05/19 Blood Culture - Preliminary, Resulted No growth after 24 hours . All specim... ELI FELIPE MD Nov 06, 2019 16:00
[2019-11-06 22:00] VITALS: BP 134/67
[2019-11-07] MEDS: PIPERACILLIN/TAZOBACTAM SOD 3.375 GM in D5W MINI-BAG PLUS 50 ML IV SCH ×4 (02:15→21:08)
[2019-11-07] MEDS: ONDANSETRON 4MG/2ML VIAL IV SCH ×4 (03:00→21:00)
[2019-11-07 05:44] LABS: HEMATOCRIT 38.7 % (36.0-47.0); HEMOGLOBIN 11.8 g/dl (12.0-15.5); MEAN CORPUSCULAR HEMOGLOBIN 29.6 pg (27.0-33.0); MEAN CORPUSCULAR HGB CONC 30.5 g/dl (32.0-36.5); PLATELET COUNT, AUTOMATED 226 10^3/uL (150-450); RED BLOOD COUNT 3.99 10^6/uL (4.00-5.40); WHITE BLOOD COUNT 6.5 10^3/uL (4.0-10.0)
[2019-11-07 06:00] VITALS: BP 110/59
[2019-11-07 06:01] LABS: ALBUMIN 2.6 GM/DL (3.2-5.2); ALT/SGPT 14 U/L (12-78); BILIRUBIN,TOTAL 0.3 MG/DL (0.2-1.0); BLOOD UREA NITROGEN 4 MG/DL (7-18); CALCIUM LEVEL 8.8 MG/DL (8.8-10.2); CARBON DIOXIDE LEVEL 28 MEQ/L (21-32); CHLORIDE LEVEL 108 MEQ/L (98-107); CREATININE FOR GFR 0.87 MG/DL (0.55-1.30); GLOMERULAR FILTRATION RATE > 60.0 (>45); GLUCOSE, FASTING 94 MG/DL (70-100); POTASSIUM SERUM 3.9 MEQ/L (3.5-5.1); SODIUM LEVEL 138 MEQ/L (136-145)
[2019-11-07] MEDS: PANTOPRAZOLE 40MG VIAL (C9113 PER 1) IV SCH (08:07)
[2019-11-07] MEDS: ENOXAPARIN 40MG/0.4ML SYRINGE (J1650 PER 10MG) SC SCH (08:07)
--- NOTE | 2019-11-07 11:34 | REPVR ---
PROCEDURE INFORMATION: Exam: MR Abdomen Without Contrast, MRCP Exam date and time: 11/07/2019 10:14 AM Age: 64 years old Clinical indication: Abnormal findings; Abnormal radiologic finding of the abdomen; Radiologic exam and body structure: CT and US abdomen; Additional info: Ampula of vater abn on CT TECHNIQUE: Imaging protocol: MR of the abdomen without contrast. Exam focused on the bile ducts and pancreatic ducts. 3D MRCP images were acquired and processed without radiologist supervision. 3D rendering (Not supervised by radiologist): MIP and/or 3D reconstructed images were created by the technologist. COMPARISON: CT ABD/PEL W/IV CONTRAST ONLY 11/04/2019 8:42 PM FINDINGS: Liver: No mass. Gallbladder and bile ducts: Acute calculus cholecystitis with gallbladder distention, wall thickening and edema, and likely focal perforation with a 2.1 x 0.6 cm crescentic fluid collection along the outer margins of the gallbladder. Layering sludge and cholelithiasis is present, and a 1 cm stone is present in the gallbladder neck. The common bile duct is not dilated, measuring 6 mm. No intrahepatic biliary ductal dilation. Pancreas: No appreciable pancreatic mass allowing for noncontrast technique. Stomach and bowel: Inflammation along the descending duodenum is likely secondary to the acute cholecystitis. IMPRESSION: 1. Severe acute calculus cholecystitis with suspicion for local perforation along the anterior wall of the gallbladder with a small pericholecystic fluid collection. 2. No choledocholithiasis or biliary ductal dilation. 3. The inflammation along the descending duodenum and pancreatic head noted on the comparison CT is likely secondary to the cholecystitis and perforation, with no appreciable pancreatic mass allowing for noncontrast imaging technique. Electronically signed by: Arash Rios On 11/07/2019 11:33:36 AM
--- NOTE | 2019-11-07 13:12 | IPN ---
DATE: 11/06/2019 Patient says that her abdominal pain has resolved. She has no nausea or vomiting. Complains of neck pain from her trigeminal neuralgia. Requesting a muscle relaxant. Temperature 98.4, pulse 74, respiratory rate 16, blood pressure 115/58, 97% on room air. GENERAL: Awake, alert, oriented to person, place, and time, answering questions appropriately. Anicteric sclerae. No jaundice. No jugular venous distention (JVD) or thyromegaly. Moist mucous membranes. LUNGS: Clear to auscultation. No wheezing, rales, or rhonchi. HEART: S1, S2, sinus rhythm. ABDOMEN: Soft. Positive bowel sounds. Epigastric discomfort. Tender to palpation along the right flank. Nondistended. EXTREMITIES: No cyanosis, clubbing, or any pitting edema. LABORATORY DATA: White count 6.8, hemoglobin 11, hematocrit 37, platelet count 211. Sodium 140, potassium 4.2, chloride 111, bicarbonate 27, BUN 6, creatinine 0.78, glucose 103, calcium 8.8. Total bilirubin 0.2, AST 10, ALT 15, alkaline phosphatase 69, total protein 5.9, albumin 2.5. Two sets of blood cultures: No growth. CT abdomen and pelvis 11/04/2019: Distention of gallbladder and thickening of the gallbladder wall throughout the alka hepatis due to acute acalculous cholecystitis; however, there could be an obstructing lesion at the ampulla of Vater within the distal biliary system, pancreatic head, or duodenum, which appear to be involved in the inflammatory infiltrative process. ASSESSMENT AND PLAN: This is a 64-year-old female with a history of trigeminal neuralgia, migraine headaches, rheumatoid arthritis, presented with head, back, and abdominal pain, right upper quadrant, found to have acute acalculous cholecystitis. IMPRESSION: 1. Acute acalculous cholecystitis. 2. Hyponatremia due to dehydration, resolved. 3. Trigeminal neuralgia. Pain with headache. 4. Chronic right back pain. 5. Inflammation of right psoas muscle in infrarenal space. PLAN: Patient is continued on intravenous (IV) antibiotics, pain medications. Requested to have muscle relaxant for her trigeminal pain with Flexeril. Gastrointestinal (GI) and general surgery have been consulted. No further recommendations. Continue with IV fluids. Advance diet to full liquid, low fat, low cholesterol as tolerated. Possible discharge in the morning if stable overnight. MTDD
--- NOTE | 2019-11-07 13:16 | IPN ---
DATE: 11/05/2019 SUBJECTIVE: Patient complains of epigastric as well as left upper quadrant abdominal pain radiating to the right flank and between the scapula, rated at 4/10 currently, but can worsen to 9/10. Patient feels better after being n.p.o. status. She has not eaten much for the past few days at home either. No fever or chills overnight. PHYSICAL EXAMINATION: VITALS: Temperature 97.7, pulse 83, respiratory rate 18, blood pressure 136/72, 98% on room air. GENERAL: Awake, alert, oriented x3. Answering questions appropriately. No icteric or jaundice. No cyanosis. Patient speaks in full sentences. There are moist mucous membranes. LUNGS: Otherwise clear to auscultation. No wheezing, rales, or rhonchi. HEART: S1, S2, sinus rhythm. ABDOMEN: Soft. Tender in the epigastric right upper quadrant. No rebound or guarding. Positive bowel sounds. EXTREMITIES: No cyanosis, clubbing, or any pitting edema. LABORATORY DATA: White count 10, hemoglobin 13, hematocrit 40, platelet count 187,000. Sodium 135, potassium 4.2, chloride 105, bicarbonate 26, BUN 6, creatinine 0.7, glucose 96, calcium 8.4. AST 10, ALT 14, alkaline phosphatase 72. Two sets of blood cultures are pending. IMAGING STUDIES: Ultrasound of the gallbladder on 11/04/2019, CBD dilated at 1 cm secondary to partial obstruction by massive amount of inflammation and swelling of the Ampulla and duodenum, severe thickening and edema along the gallbladder, consistent with acute cholecystitis, thick sludge with possible gravel like material within the gallbladder. Margin of the gallbladder and duodenum are inseparable with gross thickening of the wall at the first portion of the duodenum with severe inflammation of the duodenum or even an ulcer creator or mass lesion could be present, it is severely thickened duodenum and presses on the head of the pancreas, inflammation this area extends along the right psoas muscle and infrarenal space. CT abdomen and pelvis 11/04/2019; CBD measures 7.5 mm in width, diffuse soft tissue density seen in alka hepatis with low density in the head of the pancreas. ASSESSMENT AND PLAN: This is a 64-year-old female who presents to the Emergency Room with biliary complaints, found to have acute cholecystitis with a duodenal ulcer. IMPRESSION: 1. Acute calculous cholecystitis and duodenal ulcer with severe abdominal pain, nausea, without a fever. Patient is currently on I.V. Zosyn, tolerating this well, despite her penicillin allergy. GI and general surgery have been consulted. Patient does not have any significant elevation of bilirubin, fever or worsening white count to necessitate cholecystostomy tube placement. Will defer to general surgery for further management. Most likely we will need to defervesce and improve clinically prior to discharge home and outpatient ex-lap. 2. Duodenal ulcer currently on PPI defer to Dr. Samano regarding need for ERCP or EGD to further delineate patient's gallstone pancreatitis and cholecystitis as well as possible EGD with biopsy for duodenal ulcer. Patient is currently on PPI, Percocet 1-2 tablets and morphine, D5 half normal with hyperglycemic protocol and fingersticks b.i.d. MTDD
[2019-11-07 14:00] VITALS: BP 126/64
--- NOTE | 2019-11-07 15:01 | IPNPDOC ---
Date Seen The patient was seen on 11/07/19. Progress Note Addendum to progress note: MRCP: severe calculous cholecystitis with local perforation/ -discussed with Dr. Reynaga, General surgery: recommended clears, HIDA scan in AM. VS, I&O, 24H, Fishbone Vital Signs/I&O Vital Signs Date Time Temp Pulse Resp B/P (MAP) Pulse Ox O2 Delivery O2 Flow Rate FiO2 11/07/19 14:00 97.8 77 17 126/64 (84) 100 Room Air I&O- Last 24 Hours up to 6 AM 11/07/19 06:00 Intake Total 2990 ml Output Total 2800 ml Balance 190 ml Laboratory Data 24H LABS Laboratory Tests 2 11/06/19 17:56: Bedside Glucose (Misc Panel) 95 11/07/19 05:10: Nucleated Red Blood Cells % (auto) 0.0, Anion Gap 2L, Glomerular Filtration Rate > 60.0, Calcium Level 8.8, Total Bilirubin 0.3, Aspartate Amino Transf (A ST/SGOT) 10, Alanine Aminotransferase (ALT/SGPT) 14, Alkaline Phosphatase 69, Total Protein 6.0L, Albumin 2.6L, Albumin/Globulin Ratio 0.8L CBC/BMP Laboratory Tests 11/07/19 05:10 Microbiology Microbiology 11/05/19 Blood Culture - Preliminary, Resulted No Growth after 48 hours. All Specime... 11/05/19 Blood Culture - Preliminary, Resulted No Growth after 48 hours. All Specime... ELI FELIPE MD Nov 07, 2019 15:01
--- NOTE | 2019-11-07 16:04 | CR.PDOC ---
General Date of Consultation: Nov 06, 2019 Referring Provider: ELI CAMERON MD Attending Physician: EMELINA CANTOR MD Consultation Primary physician/ hospitalist: [employer] french [employer] / Dr. Cameron Reason for consult: Abdominal pain HPI: 64 year old female patient with Trigeminal neuralgia, migraine headaches, rheumatoid arthritis, ( on chronic use of Naproxen twice daily, presented to [facility] ER for severe worsening abdominal pain and back pain. Patient reports vague upper abdominal pain around 1 week ago ( on Friday) which worsened with pain radiating to back and to lower abdomen. Patient also reports loss of appetite with nausea and atleast one episode of vomiting. In ER she had CT abdomen (report reviewed) and pain medications. Today patient is feeling better and tolerating liquid diet. Patient denies any unintentional weight loss. Pertinent negative GI symptoms: Patient denies fever, sick contacts, recent travel, early satiety or unintentional weight loss. No history of hematemesis, melena or hematochezia. Review of Systems: GI: as stated above CVS: No chest pain, No palpitations, No leg swelling. RS: No Shortness of breath, No Wheezing, no cough CONTRACT DRIVER: No dizziness, No motor weakness, No sensory problems Hematology: No bruising, No gum bleeding, Musculoskeletal: No joint pain, ambulating well. Skin: No rash : No hematuria, No burning sensation of the urine ENT: No ear discharge/ pain, No dysphagia. Eyes: No photophobia. Jaundice Home medications: reviewed. Antithrombotic agents - none Medical h/o: As above. Surgical h/o: Ovarian cyst removal. Social h/o: Alcohol rarely, socially, smoking Denies , IVDA/ drugs Denies . Family h/o of GI cancers - None Prior Endoscopies: --- EGD none. --- Colonoscopy Done within last 3 years in [place] ( follows with GI there). No report available. Prior GI evaluations: None in [facility] Exam: Vitals: reviewed General: Alert and oriented x 3, not in distress HEENT: NO pallor, no icterus. Normal oropharynx, NO cervical lymph nodes. Chest: symmetric with bilateral clear air entry, CVS: S1, S2 heard, normal, no murmurs . Abdomen: non-distended, no surgical scars, soft, Minimal tenderness in right upper quadrant area on deep pressure, no rigidity or guarding, no palpable masses, normal bowel sounds heard. Rectal exam: Patient refused / Deferred at this time. Extremities: no pedal edema, pulses palpable. CONTRACT DRIVER: no focal motor or sensory deficits. Moves all extremities Skin: no rash. Labs: reviewed. Imaging: reviewed. CT abdomen: distension of the gallbladder and thickening of the gallbladder wall and pericholecystic inflammation extending throughout the alka hepatis which could be due to acute acalculous cholecystitis however there could be an obstructing lesion at the Ampulla of Vater or within the distal biliary system, pancreatic head or duodenum which all appear to be involved in the in flammatory/infiltrative process. US abdomen: thickening of wall bladder wall and gravel-like gallstones in gall bladder. Severe inflammation of duodenum. CBD 1cm. Impression: -- Dull abdominal pain , worsened prior to hospitalization, associated with nausea and loss of appetite, in patient with tank terminal gauger Naproxen use, labs showing elevated WBC with normal hemoglobin, liver panel, imaging showing severe inflammation in duodenal wall, cholecystitis and sludge / stones in gall bladder, -- DDx PUD vs Ampullary lesion vs rule out pancreatic mass vs gall bladder mass. Less likely CBD obstruction and no evidence of cholangitis, as liver panel is normal. Recommendations: - Patient educated about the test results, possible differential diagnoses and All questions answered. - Continue Pantoprazole 40 mg IV twice daily for atleast 48 hours and then switch to 40 mg oral twice daily. - Hold/ avoid NSAIDs. Patient is educated about the adverse effects of NSAIDs. - Clear liquid diet for now and can advance as tolerated - Obtain MRI triple phase with contrast preferably to evaluate the pancreatobiliary issues. - Will schedule for EGD / ERCP for further evaluation based on the above. The procedures, indications, risks (bleeding, perforation, infection, hypotension, respiratory depression, allergy, need for endotracheal intubation, surgery, colostomy, cardiac arrest, even ), benefits, limitations (e.g., missing a lesion), and all other alternatives (including no intervention) were explained to the patient who understood and agreed for the procedure. - Also reviewed the possible need for EUS depending on the MRI results. Plan of care discussed with patient and primary team. Patient verbalized understanding and agreed with the plan. Addendum/ Follow up: MRI/MRCP results were reported today. Due to additional findings will review the same again with surgery. Based on that will proceed with EGD/ ERCP with stent placement if needed. Plan of care discussed with primary team. Vital Signs/I&O Vital Signs Date Time Temp Pulse Resp B/P (MAP) Pulse Ox O2 Delivery O2 Flow Rate FiO2 11/07/19 14:00 97.8 77 17 126/64 (84) 100 Room Air I&O- Last 24 Hours up to 6 AM 11/07/19 06:00 Intake Total 2990 ml Output Total 2800 ml Balance 190 ml Laboratory Data Labs 24H Laboratory Tests 2 11/06/19 17:56: Bedside Glucose (Misc Panel) 95 11/07/19 05:10: Nucleated Red Blood Cells % (auto) 0.0, Anion Gap 2L, Glomerular Filtration Rate > 60.0, Calcium Level 8.8, Total Bilirubin 0.3, Aspartate Amino Transf (AST/SGOT) 10, Alanine Aminotransferase (ALT/SGPT) 14, Alkaline Phosphatase 69, Total Protein 6.0L, Albumin 2.6L, Albumin/Globulin Ratio 0.8L CBC/BMP Laboratory Tests 11/07/19 05:10 Microbiology Microbiology 11/05/19 Blood Culture - Preliminary, Resulted No Growth after 48 hours. All Specime... 11/05/19 Blood Culture - Preliminary, Resulted No Growth after 48 hours. All Specime... Allergies Coded Allergies: Penicillins (Verified Allergy, Intermediate, RASH, 11/04/19) Home Medications Scheduled Amoxicillin (Amoxicillin) 875 Mg Tablet, 875 MG PO BID for 8 Days, (Reported) Nabumetone (Nabumetone) 750 Mg Tablet, 750 MG PO BID, (Reported) Scheduled PRN Carbamazepine (Carbamazepine) 100 Mg Tab.chew, 50 MG PO BID PRN for PAIN, (Reported) Fluticasone Propionate (Flonase Allergy Relief) 9.9 Ml [place].susp, 1 SPRAY NA BID PRN for NASAL CONGESTION, (Reported) Gabapentin (Gabapentin) 300 Mg Capsule, 300 MG PO BID PRN for PAIN, (Reported) EMELINA CANTOR MD Nov 07, 2019 16:04
[2019-11-07 22:00] VITALS: BP 157/77
[2019-11-08] MEDS: PIPERACILLIN/TAZOBACTAM SOD 3.375 GM in D5W MINI-BAG PLUS 50 ML IV SCH ×4 (01:33→23:33)
[2019-11-08] MEDS: ONDANSETRON 4MG/2ML VIAL IV SCH ×4 (02:40→21:00)
[2019-11-08] MEDS ORDERED: HumaLOG INSULIN (NovoLOG) PER UNIT SC SCH (08:00)
[2019-11-08 08:03] LABS: BASO # 0.1 10^3/uL (0.0-0.2); BASO % 0.8 % (0.0-1.0); EOS # 0.3 10^3/uL (0.0-0.5); EOS % 4.2 % (0.0-3.0); HEMATOCRIT 40.8 % (36.0-47.0); HEMOGLOBIN 13.1 g/dl (12.0-15.5); LYMPH # 1.4 10^3/uL (1.5-5.0); LYMPH % 22.5 % (24.0-44.0); MEAN CORPUSCULAR HEMOGLOBIN 29.4 pg (27.0-33.0); MEAN CORPUSCULAR HGB CONC 32.1 g/dl (32.0-36.5); MEAN CORPUSCULAR VOLUME 91.7 fl (80.0-96.0); MONO # 0.5 10^3/uL (0.0-0.8); NEUTROPHILS # 3.8 10^3/uL (1.5-8.5); NEUTROPHILS % 62.5 % (36.0-66.0); PLATELET COUNT, AUTOMATED 290 10^3/uL (150-450); RED BLOOD COUNT 4.45 10^6/uL (4.00-5.40)
--- NOTE | 2019-11-08 08:16 | IPNPDOC ---
Date Seen The patient was seen on 11/08/19. Progress Note Progress Note dictated Severe Acute Calculous Cholecystitis with perforation -per General Surgery, Dr. Leach, discontinue HIDA scan and proceed with cholecystostomy tube placement by Interventional Radiology. -Per [facility] analytical lab technician, IR, Dr. Crenshaw, is not available and is on vacation all week. -Therefore, ammunition assembly laborer with ask Dr. Rocha/Evangelista Gautam if they can do the procedure. If not, pt is to be transferred to [facility] for IR, cholecystostomy tube placement. -keep npo, IVF, hypoglycemic protocol, zosyn. VS, I&O, 24H, Fishbone Vital Signs/I&O Vital Signs Date Time Temp Pulse Resp B/P (MAP) Pulse Ox O2 Delivery O2 Flow Rate FiO2 11/07/19 22:00 99.9 76 18 157/77 (103) 98 Room Air I&O- Last 24 Hours up to 6 AM 11/08/19 06:00 Intake Total 2490 ml Output Total 3100 ml Balance -610 ml Laboratory Data 24H LABS Laboratory Tests 2 11/07/19 17:19: Coronavirus (COVID-19)(PCR) NEGATIVE 11/07/19 18:04: Bedside Glucose (Misc Panel) 87 11/08/19 06:16: Bedside Glucose (Misc Panel) 92 11/08/19 07:34: Immature Granulocyte % (Auto) 1.0, Neutrophils (%) (Auto) 62.5, Lymphocytes (%) (Auto) 22.5L, Monocytes (%) (Auto) 9.0H, Eosinophils (%) (Auto) 4.2H, Basophils (%) (Auto) 0.8, Neutrophils # (Auto) 3.8, Lymphocytes # (Auto) 1.4L, Monocytes # (Auto) 0.5, Eosinophils # (Auto) 0.3, Basophils # (Auto) 0.1, Nucleated Red Blood Cells % (auto) 0.0 CBC/BMP Laboratory Tests 11/08/19 07:34 Microbiology Microbiology 11/05/19 Blood Culture - Preliminary, Resulted No Growth after 72 hours. All specime... 11/05/19 Blood Culture - Preliminary, Resulted No Growth after 72 hours. All specime... ELI FELIPE MD Nov 08, 2019 08:16
[2019-11-08] MEDS: PANTOPRAZOLE 40MG VIAL (C9113 PER 1) IV SCH (08:21)
[2019-11-08 08:27] LABS: ALT/SGPT 34 U/L (12-78); BILIRUBIN,TOTAL 0.3 MG/DL (0.2-1.0); BLOOD UREA NITROGEN 5 MG/DL (7-18); C REACTIVE PROTEIN QUANTITATIV 4.27 MG/DL (0.00-0.30); CALCIUM LEVEL 9.1 MG/DL (8.8-10.2); CARBON DIOXIDE LEVEL 29 MEQ/L (21-32); CHLORIDE LEVEL 106 MEQ/L (98-107); CREATININE FOR GFR 0.86 MG/DL (0.55-1.30); ERYTHROCYTE SEDIMENTATION RATE 31 mm/hr (0-30); GLOMERULAR FILTRATION RATE > 60.0 (>45); GLUCOSE, FASTING 105 MG/DL (70-100); LIPASE 145 U/L (73-393); POTASSIUM SERUM 4.4 MEQ/L (3.5-5.1); SODIUM LEVEL 140 MEQ/L (136-145); TOTAL PROTEIN 6.4 GM/DL (6.4-8.2)
--- NOTE | 2019-11-08 08:50 | IPNPDOC ---
Text Note Date of Service The patient was seen on 11/08/19. NOTE Weekend notes and events reviewed. She was able to get an MRI/MRCP performed showing contained perforation of the gallbladder as the most likely cause of the extensive inflammation around the duodenum and head of the pancreas. Patient is sitting up on the bed looks very comfortable. She reports very minimal leftover burning pain in the right side of her abdomen. She tolerated full liquids over the weekend. She denies any ongoing nausea Vital signs stable, afebrile On examination patient looks very comfortable Anicteric sclerae, lips appear mildly dry No jugular venous distention Lung sounds are clear to auscultation bilaterally without wheezing Heart rate and rhythm are regular without murmurs Abdomen is soft and nondistended nontender on palpation Impression and plan Severe acute cholecystitis The MRI/MRCP is suggestive of contained perforation from the gallbladder with resulting secondary inflammation around the alka hepatis, duodenum and pancreatic head. At this point this will be too dangerous to tackle surgically. Clinically she is getting better. I would like her to get a cholecystostomy tube to decompress the gallbladder and make sure when she goes home that the gallbladder is not secondary the perforators there are stones at the neck of the gallbladder and she is at risk for recurrence. Most likely will need to go home with a cholecystostomy tube and he has to wait out until all the inflammation subsides prior to tackling the cholecystectomy. VS,Fishbone, I+O VS, Fishbone, I+O Laboratory Tests 11/08/19 07:34 Vital Signs Date Time Temp Pulse Resp B/P (MAP) Pulse Ox O2 Delivery O2 Flow Rate FiO2 11/07/19 22:00 99.9 76 18 157/77 (103) 98 Room Air I&O- Last 24 Hours up to 6 AM 11/08/19 05:59 Intake Total 2730 ml Output Total 3700 ml Balance -970 ml LANETTE SIMMS MD Nov 08, 2019 08:18
[2019-11-08] MEDS ORDERED: ISOVUE-300 61% 50ML VIAL As Ordered ONE (12:28)
[2019-11-08] MEDS ORDERED: propofoL 200 MG/20 ML VIAL As Ordered ONE ×2 (12:30→13:40)
[2019-11-08] MEDS ORDERED: fentaNYL 100 MCG/2 ML INJECTION (J3010) As Ordered ONE (12:30)
[2019-11-08] MEDS ORDERED: MIDAZOLAM INJ 2MG/2ML VIAL (J2250 PER 1MG) As Ordered ONE (12:30)
[2019-11-08] MEDS ORDERED: ROCURONIUM BROMIDE 50 MG/5 ML VIAL As Ordered ONE (12:30)
[2019-11-08] MEDS ORDERED: LIDOCAINE 2% 100MG/5ML SDV (FOR ANES.) As Ordered ONE (12:30)
[2019-11-08] MEDS ORDERED: ONDANSETRON 4MG/2ML VIAL IV PRN (14:00)
[2019-11-08] MEDS ORDERED: LR 1,000 ML IV SCH (14:00)
[2019-11-08] MEDS ORDERED: oxyCODONE 5MG TAB PO PRN (14:00)
[2019-11-08] MEDS ORDERED: fentaNYL 100 MCG/2 ML INJECTION (J3010) IV PRN (14:00)
--- NOTE | 2019-11-08 14:11 | ROOR ---
Patient Name: Asha Beck Procedure Date: 11/08/2019 12:39 PM Date of : 1955 Age: 64 Room: Main OR Gender: Female Note Status: Finalized Procedure: Upper GI endoscopy Indications: Epigastric abdominal pain, Abnormal CT of the GI tract Providers: Elio Samano MD Referring MD: Jeimy Cameron MD Requesting Provider: Medicines: Monitored Anesthesia Care Complications: No immediate complications. Procedure: Pre-Anesthesia Assessment: - Prior to the procedure, a History and Physical was performed, and patient medications and allergies were reviewed. The patient is competent. The risks and benefits of the procedure and the sedation options and risks were discussed with the patient. All questions were answered and informed consent was obtained. Patient identification and proposed procedure were verified by the physician, the nurse and the anesthesiologist in the procedure room. Mental Status Examination: alert and oriented. Airway Examination: normal oropharyngeal airway and neck mobility. Respiratory Examination: clear to auscultation. CV Examination: normal. Prophylactic Antibiotics: The patient does not require prophylactic antibiotics. Prior Anticoagulants: The patient has taken no previous anticoagulant or antiplatelet agents. ASA Grade Assessment: II - A patient with mild systemic disease. After reviewing the risks and benefits, the patient was deemed in satisfactory condition to undergo the procedure. The anesthesia plan was to use monitored anesthesia care (MAC). Immediately prior to administration of medications, the patient was re-assessed for adequacy to receive sedatives. The heart rate, respiratory rate, oxygen saturations, blood pressure, adequacy of pulmonary ventilation, and response to care were monitored throughout the procedure. The physical status of the patient was re-assessed after the procedure. The Endoscope was introduced through the mouth, and advanced to the second part of duodenum. The Duodenoscope was introduced through the and advanced to the duodenum. The upper GI endoscopy was accomplished without difficulty. The patient tolerated the procedure well. Findings: One tongue of salmon-colored mucosa was present from 38 to 40 cm. No other visible abnormalities were present. Biopsies were taken with a cold forceps for histology. Verification of patient identification for the specimen was done by the physician and nurse using the patient's name, date and medical record number. Estimated blood loss was minimal. Scattered mild inflammation characterized by erythema and granularity was found in the gastric body and in the gastric antrum. Biopsies were taken with a cold forceps for Helicobacter pylori testing. Patchy mild inflammation characterized by congestion (edema), erythema and granularity was found in the duodenal bulb. The second portion of the duodenum and area of the papilla were normal. Impression: - [place]-colored mucosa suspicious for short-segment Leonard's esophagus. Biopsied. - Gastritis. Biopsied. - Duodenitis. - Normal second portion of the duodenum and area of the papilla. Recommendation: - Patient has a contact number available for emergencies. The signs and symptoms of potential delayed complications were discussed with the patient. Return to normal activities tomorrow. Written discharge instructions were provided to the patient. - High fiber diet. - Continue present medications. - Await pathology results. - Repeat upper endoscopy in 1 year for surveillance of Leonard's esophagus. - Telephone GI clinic for pathology results in 2 weeks. - Return to primary care physician. Elio Samano MD Elio Samano MD 11/08/2019 2:11:19 PM Electronically signed by Elio Samano MD Number of Addenda: 0 Note Initiated On: 11/08/2019 12:39 PM Estimated Blood Loss: Estimated blood loss was minimal.
[2019-11-08] MEDS ORDERED: LIDOCAINE 1% MDV 20ML VIAL As Ordered ONE (15:06)
[2019-11-08 16:00] VITALS: BP 152/82
[2019-11-08 16:30] VITALS: BP 144/82
--- NOTE | 2019-11-08 16:59 | IPN ---
DATE: 11/06/2019 SUBJECTIVE: The patient has been doing well overnight, has had less pain and discomfort. Her white count has normalized. She has been afebrile and her abdominal pain is mostly resolved at this time. Chemistries show that still has no significant liver function test abnormalities and made current recommendations by Dr. Samano is to proceed with an MRCP and a possible ERCP on Friday. However, from a surgical standpoint she is making some good improvement and I am wondering if this was a severe cholecystitis more so than duodenal inflammation, it is hard to know at this time. IMPRESSION/PLAN: Patient has some significant improvement. I would recommend slowly progressing her diet as tolerated and keep her on a low fat diet and also empirically treat her for a duodenal ulceration/inflammation as a secondary issue and continue per GI and medicine and will be available should further intervention be performed from a surgical standpoint. JOEL
--- NOTE | 2019-11-08 17:01 | IPN ---
DATE: 11/07/2019 SUBJECTIVE: She denies nausea, vomiting, epigastric abdominal pain, was able to eat two poached eggs and a banana this morning without any nausea, vomiting, abdominal pain, fever or chills. Plan is for EGD in the morning and ultrasound MRCP. PHYSICAL EXAMINATION: VITAL SIGNS: Temperature 98.3, pulse 72, respiratory rate 18, blood pressure 110/59, 96% on room air. GENERAL: Awake, alert and oriented x3, answering questions appropriately. LUNGS: Clear to auscultation. No wheezing, rales or rhonchi. HEART: S1 and S2, sinus rhythm. Abdomen: Soft, nontender and nondistended. Positive bowel sounds x4 quadrants. No rebound or guarding. LABORATORY DATA: White count 6.5, hemoglobin 11, hematocrit 38, platelet count 226,000. Sodium 138, potassium 3.9, chloride 108, bicarbonate 28, BUN 4, creatinine 0.87, glucose 94. ASSESSMENT AND PLAN: This is a 64-year-old female admitted on 11/05/19, history of trigeminal neuralgia, migraine headaches and rheumatoid arthritis who presented with epigastric abdominal pain radiating to the back, was found to have acute gallstone pancreatitis, admitted for supportive services. IMPRESSION: 1. cholelithiasis 2. Acute calculous cholecystitis. 3. Abnormal ampulla of Vater with possible obstructing lesion. 4. Trigeminal neuralgia. 5. Headache. PLAN: Patient is doing well on current regimen with Percocet one to two tablets as needed, Morphine for breakthrough pain, advance on diet and Zosyn, General Surgeon, Dr. Leach, will need to see the patient as an outpatient for laparoscopic cholecystectomy. Patient is planned for EGD with ERCP after MRCP is done on Friday per Dr. Samano. [facility]
--- NOTE | 2019-11-08 17:03 | IPN ---
DATE: 11/08/2019 SUBJECTIVE: T-max was 99.9, no nausea or vomiting, she tolerated her diet yesterday but changed back to clears due to abnormal findings on MRI showing perforated gallbladder. Denies any chills. PHYSICAL EXAMINATION: VITAL SIGNS: Temperature 99.9, pulse 76, respiratory rate 18, blood pressure 157/77. GENERAL: Awake, alert and oriented x3, answering questions appropriately. HEENT: No icterus. No jaundice. NECK: No JVD or thyromegaly. LUNGS: Clear to auscultation. No wheezes, rales or rhonchi. HEART: S1 and S2, sinus rhythm. ABDOMEN: Soft, nontender and nondistended. Positive bowel sounds. No abdominal bruit. EXTREMITIES: No cyanosis, clubbing or pitting edema. LABORATORY DATA: White count 6, hemoglobin 13, hematocrit 40, platelet count 290,000, sodium 140, potassium 4.4, chloride 106, bicarbonate 29, BUN 5, creatinine 0.86, glucose of 105. Total bilirubin 0.38, AST 29, ALT 34, alkaline phosphatase was 86, C-reactive protein 4.27. Microbiology to assess the blood culture negative. MRI of the abdomen: Severe acute calculous cholecystitis with suspicion for local perforation along the anterior wall of the gallbladder with small pericholecystic fluid collection. No choledocholithiasis or biliary dilatation, inflammation along the descending duodenum and pancreatic head noted on CT, most likely secondary to cholecystitis and perforation with no appreciable pancreatic mass allowing for non-contrast imaging technique. ASSESSMENT AND PLAN: This is a 64-year-old female admitted on 11/05/2019 with epigastric and right upper quadrant abdominal pain found to have acute calculous cholecystitis and a duodenal ulcer. CURRENT ISSUES: 1. Acute calculous cholecystitis, currently on IV Zosyn, on clears diet, made NPO for a cholecystotomy tube placement today and Percocet one to two tablets if needed for pain. 2. Duodenal ulcer, on Protonix 40 IV daily. 3. Disposition: Patients MRCP showed no abnormality in the pancreas, therefore the patient will be continued on supportive care and laparoscopic cholecystectomy as an outpatient once cholecystotomy tube is removed. [facility] DIVISIONAubrie
[2019-11-08 17:30] VITALS: BP 142/78
[2019-11-08 18:30] VITALS: BP 141/76
[2019-11-08] MEDS: PERCOCET 5MG/325MG TAB PO PRN (18:36)
[2019-11-08 19:30] VITALS: BP 117/67
[2019-11-08 20:30] VITALS: BP 112/63
[2019-11-09] MEDS: PERCOCET 5MG/325MG TAB PO PRN (01:34)
[2019-11-09 02:00] VITALS: BP 109/61
[2019-11-09] MEDS: ONDANSETRON 4MG/2ML VIAL IV SCH ×4 (03:00→21:00)
[2019-11-09] MEDS: PIPERACILLIN/TAZOBACTAM SOD 3.375 GM in D5W MINI-BAG PLUS 50 ML IV SCH ×4 (05:40→23:41)
[2019-11-09 06:00] VITALS: BP 115/65
[2019-11-09] MEDS: PANTOPRAZOLE 40MG VIAL (C9113 PER 1) IV SCH (08:54)
--- NOTE | 2019-11-09 09:01 | REPVR ---
PROCEDURE INFORMATION: Exam: XR Chest, 1 View Exam date and time: 11/09/2019 8:40 AM Age: 64 years old Clinical indication: Shortness of breath; Additional info: SOB TECHNIQUE: Imaging protocol: XR of the chest Views: 1 view. COMPARISON: No relevant prior studies available. FINDINGS: Lungs: Lungs are well aerated. No consolidation. Pleural space: No significant pleural effusions. No pneumothorax. Heart/Mediastinum: Unremarkable. No cardiomegaly. Bones/joints: Unremarkable. IMPRESSION: No acute abnormalities are identified. Electronically signed by: Michele Dobson On 11/09/2019 09:00:45 AM
[2019-11-09] MEDS ORDERED: FLAG500T PO (09:10)
[2019-11-09] MEDS ORDERED: PERCOCET PO (09:10)
[2019-11-09] MEDS ORDERED: AUGM875T28 PO (09:10)
[2019-11-09] MEDS ORDERED: PROTPAK PO (09:13)
--- NOTE | 2019-11-09 13:14 | IPNPDOC ---
Text Note Date of Service The patient was seen on 11/09/19. NOTE Patient reports that she feels tired today he otherwise denies any abdominal discomfort, nausea or vomiting. She is hemodynamically stable. She underwent upper endoscopy yesterday with Dr. Samano which according to him was nonrevealing. I asked radiology to place a cholecystostomy tube for the severe cholecystitis which they did. Past 24 hours she is afebrile. MAXIMUM TEMPERATURE of 97.9 the current is 97.4 Hemodynamically stable On examination: Patient is seen laying in bed, relatively comfortable reports she feels tired Lung sounds are clear to auscultation bilaterally, no shortness of breath and laboratory on speaking Regular heart rate and rhythm Abdomen is flat, soft no noticeable tenderness over the right upper quadrant area. She has a new percutaneous cholecystostomy drain and drainage looks clear bile and nonbloody Impression and plan Severe acute cholecystitis with suggestion of possible contained perforation on the MRCP status post percutaneous cholecystostomy Possibly secondary inflammation of the head of the pancreas and duodenal wall I've advance her diet today. Surprisingly the output of the cholecystostomy tube looks to be noninflamed or nonpurulent bile material. I have spoken to her that we will keep the cholecystostomy tube for a few weeks and at some point reimage her to make sure all the inflammation has gone away prior to contemplating interval cholecystectomy which may take a couple months. She will also concurrently follow-up with gastroenterology. They have advised her to continue to take twice a day PPI. When she is discharge, have her follow-up with me in 2 weeks' time. VS,Fishbone, I+O VS, Fishbone, I+O Vital Signs Date Time Temp Pulse Resp B/P (MAP) Pulse Ox O2 Delivery O2 Flow Rate FiO2 11/09/19 06:00 97.4 73 17 115/65 (82) 97 Room Air I&O- Last 24 Hours up to 6 AM 11/09/19 05:59 Intake Total 950 ml Output Total 1125 ml Balance -175 ml LANETTE SIMMS MD Nov 09, 2019 13:14
[2019-11-09 22:00] VITALS: BP 120/72
[2019-11-10] MEDS: ONDANSETRON 4MG/2ML VIAL IV SCH ×2 (03:00→09:07)
[2019-11-10] MEDS: PIPERACILLIN/TAZOBACTAM SOD 3.375 GM in D5W MINI-BAG PLUS 50 ML IV SCH (05:46)
[2019-11-10 06:00] VITALS: BP 114/68
[2019-11-10] MEDS: PANTOPRAZOLE 40MG VIAL (C9113 PER 1) IV SCH (09:07)
--- NOTE | 2019-11-23 13:15 | DSES ---
DATE OF ADMISSION: 11/05/2019 DATE OF DISCHARGE: 11/10/2019 CONSULTANTS: * General surgeon, Dr. Leach * Gastroenterology, Dr. Samano PROCEDURES DURING THIS ADMISSION: * Cholecystomy tube placement by Interventional Radiology, Dr. Rocha and Evangelista Gautam * EGD, MRCP, ERCP by Dr. Samano. DISCHARGE DIAGNOSES: * Acute calculus cholecystitis. * Barretts esophagus. * Gastritis. * Duodenitis. DISCHARGE MEDICATIONS: - Augmentin 875 mg p.o. twice daily - Flagyl 500 every 8 hours - Oxycodone/acetaminophen 5/325 two tablets every 6 hours as needed for severe pain - Protonix 40 mg daily - Carbamazepine 50 twice a day - Fluticasone one spray twice a day as needed - Gabapentin 300 twice a day as needed - Nabumetone 750 p.o. twice daily HOSPITAL COURSE: This is a 64-year-old female presented to the emergency room on 11/05/2019 with severe epigastric abdominal pain with radiation to the scapula. The patient was found to have severe acute cholecystitis. General surgeon Dr. Leach was consulted. The patient was kept n.p.o. on IV fluids and as needed pain medications. The patient had a CT abdomen and pelvis with fullness in the ampulla of Vater as well as the head of the pancreas. Further evaluated with MRCP showing acalculous cholecystitis and local perforation from the acute acalculous cholecystitis, no choledocholithiasis or biliary ductal dilatation, inflammation along the descending duodenum and pancreatic most likely secondary to cholecystitis with local perforation. The patient then underwent cholecystectomy tube placement by radiology 11/08/2019 as well as an ERCP, EGD done by Dr. Samano on 11/08/2019 which showed gastritis, duodenitis, and questionable Barretts esophagus with surveillance EGD required. The patient did well on IV Zosyn, remained afebrile with decreased white count, peak of 12,000 on admission, currently 6,000 with sed rate decreasing to 31. The patient was instructed to care for the cholecystomy tube and to keep an eye on the output. PHYSICAL EXAM ON DISCHARGE: Temperature 98.4, pulse 73, respiratory rate 18, blood pressure 114/68, 96% on room air. Generally awake, alert and oriented times three. Anicteric sclera, no jaundice, no icterus. Cholecystostomy tube in place with bilious drainage. Abdomen is soft, nontender, nondistended. Positive bowel sounds times four quadrants. No hepatosplenomegaly. Lungs are clear to auscultation without wheezes, rales or rhonchi . Heart S1, S2, sinus rhythm. Extremities have no pitting edema. LABORATORY DATA ON DISCHARGE: White count 6, hemoglobin 13, hematocrit 40, platelet count 290. Sodium 140, potassium 4.4, chloride 106, bicarbonate 29, BUN 5, creatinine 0.86, glucose of 105. Abscess culture is still pending. Many gram-positive cocci in pairs, chains, and clusters. Blood culture negative. Anaerobic culture is pending. IMAGING STUDIES: MRCP 11/07/2019: Severe acute acalculous cholecystitis with local perforation along the anterior wall of the gallbladder with small pericholecystic fluid collection. No choledocholithiasis or biliary ductal dilatation, inflammation along the descending duodenum,, pancreatic head likely secondary to cholecystitis and perforation with no mass. CT of the head: No acute intracranial pathology. DISCHARGE INSTRUCTIONS: The patient is to follow up with general surgery for a laparoscopic cholecystectomy. Follow up for repeat EGD with Dr. Smaano regarding Barretts esophagus. Time spent on discharge 30 minutes. MTDD
--- NOTE | 2019-11-25 11:12 | REP ---
ULTRASOUND-GUIDED CHOLECYSTOSTOMY DRAINAGE CATHETER PLACEMENT The procedure was performed under the direct supervision of Dr. Rocha. The risks and benefits of the procedure were explained to the patient and informed consent was obtained. The gallbladder was localized using ultrasound guidance. The skin was prepped and draped in a sterile fashion. 1% Lidocaine was used as a local anesthetic. Using ultrasound guidance, a 10-Arabic Skater APDL catheter was inserted using trocar technique. 80 mL of brownish colored fluid was withdrawn and sent to the lab for analysis. The catheter was affixed to the skin and a sterile dressing was applied. The catheter was connected to a gravity drainage bag. The patient tolerated the procedure well and there were no immediate complications. JOEL
[2019-12-14] MEDS ORDERED: PANT40TA29 (08:54)
[2019-12-14] MEDS ORDERED: MAGN400C PO (09:08)
[2019-12-14] MEDS ORDERED: D31000TA2 PO (09:08)
[2019-12-14] MEDS ORDERED: CLAR10CA3 PO (09:08)
[2019-12-14] MEDS ORDERED: BENE1POW5 PO (09:08)
[2019-12-14] MEDS ORDERED: ALAW0.02 OS (09:08)
[2019-12-14] MEDS ORDERED: CIPR500T3 (09:08)
[2019-12-14] MEDS ORDERED: MULTCAP PO (09:08)
[2019-12-14] MEDS ORDERED: PROBCAP14 PO (09:08)
== END 2019-11-10 10:58 | disposition home or self-care (01) | DRG 445 ==
LOC: M ED 17:51 → M ED INP 11-05 01:43 → ENRESERV 11-05 02:15 → M MS5PR 11-05 02:30
PROVIDERS: ADMIT Internal Medicine; ATTEND General Practice
PROC: 0DB98ZX Excision of Duodenum, Via Natural or Artificial Opening Endoscopic, Diagnostic (ICD-10-PCS; 2019-11-08)
PROC: 0F943ZZ Drainage of Gallbladder, Percutaneous Approach (ICD-10-PCS; 2019-11-08)
PROC: 0DB58ZX Excision of Esophagus, Via Natural or Artificial Opening Endoscopic, Diagnostic (ICD-10-PCS; principal; 2019-11-08 07:34)
DX: K80.62 Calculus of gallbladder and bile duct with acute cholecystitis without obstruction (principal); E87.1 Hypo-osmolality and hyponatremia; E86.0 Dehydration; G43.909 Migraine, unspecified, not intractable, without status migrainosus; G50.0 Trigeminal neuralgia; M06.9 Rheumatoid arthritis, unspecified; Z88.0 Allergy status to penicillin; K26.9 Duodenal ulcer, unspecified as acute or chronic, without hemorrhage or perforation; M60.9 Myositis, unspecified

== ENCOUNTER → 2019-11-22 | Outpatient (CLI) | payer OTHER ==
[~2019-11-22] MED LIST changes: +ALAW0.02 OS; +AMOX875T; +AMOX875T PO; +AUGM875T28 PO; +BENE1POW5 PO; +CARB10TACH PO; +CIPR500T3; +CLAR10CA3 PO; +D31000TA2 PO; +FLAG500T PO; +FLON1SPR; +FLUTISP; +GABA-843 PO; +GABA-845 PO; +GASTROGRAFIN SOLUTION 30ML (Q9963) As Ordered ONE; +ISOVUE-300 61% 50ML VIAL As Ordered ONE; +MAGN400C PO; +MILKSUS3 PO; +MULTCAP PO; +NABU-53 PO; +PANT40TA29; +PERCOCET PO; +PROBCAP14 PO; +PROTPAK PO
--- NOTE | 2019-11-25 11:17 | REP ---
CHOLANGIOGRAM DATE: 11/22/2019 The procedure was performed by WILFREDO Miller, under the direct supervision of Dr. Rocha. All images were reviewed with Dr. Rocha prior to dictation. The patient had a cholecystostomy tube placed on 11/08/2019. Approximately 20 mL of Isovue 300 was injected into the existing cholecystostomy tube. The gallbladder is contracted and contains a 1.2 cm filling defect consistent with a stone. There is free flow of contrast through the cystic duct, common bile duct, and into the duodenum. No common bile duct filling defect or stricture was visualized. IMPRESSION: 1. 1.2 cm filling defect consistent with stone is visualized within the gallbladder. 2. Free flow of contrast through the cystic duct, common bile duct, and into the duodenum. 3. No common bile duct filling defect or stricture visualized. 0.2 minutes of fluoroscopy time was utilized for this procedure. [facility] SYSTEMAubrie
== END ==
LOC: M RADPRO 08:01
PROVIDERS: ATTEND Surgery
DX: K81.0 Acute cholecystitis (principal)
CPT/HCPCS: 47531; Q9963; Q9967

== ENCOUNTER → 2019-12-11 | Outpatient (CLI) | payer OTHER ==
[~2019-12-11] MED LIST changes: -GASTROGRAFIN SOLUTION 30ML (Q9963) As Ordered ONE; -ISOVUE-300 61% 50ML VIAL As Ordered ONE
[2019-12-11 11:48] LABS: ALBUMIN 3.7 GM/DL (3.2-5.2); BILIRUBIN,DIRECT 0.1 MG/DL (0.0-0.2); BILIRUBIN,TOTAL 0.3 MG/DL (0.2-1.0); TOTAL PROTEIN 6.8 GM/DL (6.4-8.2)
== END ==
LOC: M LAB 10:56
PROVIDERS: ATTEND Surgery
DX: K81.0 Acute cholecystitis (principal)

== ENCOUNTER → 2019-12-14 | Outpatient (CLI) | payer OTHER ==
[2019-12-14 14:36] LABS: HEMATOCRIT 42.3 % (36.0-47.0); HEMOGLOBIN 13.3 g/dl (12.0-15.5); MEAN CORPUSCULAR HEMOGLOBIN 28.7 pg (27.0-33.0); MEAN CORPUSCULAR HGB CONC 31.4 g/dl (32.0-36.5); MEAN CORPUSCULAR VOLUME 91.4 fl (80.0-96.0); PLATELET COUNT, AUTOMATED 320 10^3/uL (150-450); RED BLOOD COUNT 4.63 10^6/uL (4.00-5.40)
[2019-12-14 15:03] LABS: BLOOD UREA NITROGEN 8 MG/DL (7-18); CALCIUM LEVEL 9.6 MG/DL (8.8-10.2); CARBON DIOXIDE LEVEL 26 MEQ/L (21-32); CHLORIDE LEVEL 105 MEQ/L (98-107); CREATININE FOR GFR 0.95 MG/DL (0.55-1.30); GLOMERULAR FILTRATION RATE > 60.0 (>45); GLUCOSE, FASTING 99 MG/DL (70-100); POTASSIUM SERUM 4.4 MEQ/L (3.5-5.1); SODIUM LEVEL 138 MEQ/L (136-145)
== END ==
LOC: M LAB 14:04
PROVIDERS: ATTEND Surgery
DX: Z01.818 Encounter for other preprocedural examination (principal)

== ENCOUNTER → 2019-12-23 | Outpatient (CLI) | payer OTHER | LOC: M LABSMTC 11:12 | PROVIDERS: ATTEND Anesthesiology | DX: Z11.59 Encounter for screening for other viral diseases (principal) ==

== ENCOUNTER 2019-12-28 06:08 | Day surgery (SDC) | payer OTHER ==
[~2019-12-28] VITALS: Ht 167.6 cm; Wt 70.3 kg
[~2019-12-28 06:08] MED LIST changes: -MILKSUS3 PO
[2019-12-28] MEDS ORDERED: MIDAZOLAM INJ 2MG/2ML VIAL (J2250 PER 1MG) As Ordered ONE (06:54)
[2019-12-28] MEDS ORDERED: fentaNYL 100 MCG/2 ML INJECTION (J3010) As Ordered ONE (06:55)
[2019-12-28] MEDS ORDERED: MILKSUS3 PO (06:56)
[2019-12-28] MEDS ORDERED: propofoL 200 MG/20 ML VIAL As Ordered ONE (06:56)
[2019-12-28] MEDS ORDERED: LR 1,000 ML IV ONE (07:00)
[2019-12-28] MEDS ORDERED: LevoFLOXacin IV 500 MG in IV 1 EA IV ONE (07:00)
[2019-12-28] MEDS ORDERED: ROCURONIUM BROMIDE 50 MG/5 ML VIAL As Ordered ONE ×2 (07:02→08:38)
[2019-12-28] MEDS ORDERED: LIDOCAINE 2% 100MG/5ML SDV (FOR ANES.) As Ordered ONE (07:02)
[2019-12-28] MEDS ORDERED: SCOPOLAMINE 1MG TRANSDERMAL PATCH As Ordered ONE (07:07)
[2019-12-28] MEDS ORDERED: LIDOCAINE 1% SDV 30ML VIAL As Ordered ONE (07:12)
[2019-12-28] MEDS ORDERED: BUPIVACAINE HCL 0.25% 30ML VIAL As Ordered ONE (07:12)
[2019-12-28] MEDS ORDERED: SCOPOLAMINE 1MG TRANSDERMAL PATCH TOP ONE (07:30)
[2019-12-28] MEDS ORDERED: dexameTHASONE 4 MG/ML 1ML VIAL (J1100 PER 1MG) As Ordered ONE (07:43)
[2019-12-28] MEDS ORDERED: ONDANSETRON 4MG/2ML VIAL As Ordered ONE (07:44)
[2019-12-28] MEDS ORDERED: METOCLOPRAMIDE INJ 10MG/2ML VIAL (J2765 PER 1) As Ordered ONE ×2 (07:44→08:38)
[2019-12-28] MEDS ORDERED: SUGAMMADEX SODIUM 500 MG/5 ML VIAL (BRIDION) As Ordered ONE (07:46)
[2019-12-28] MEDS ORDERED: ePHEDrine SULFATE 25 MG/5 ML(5MG/ML) SYRINGE As Ordered ONE (07:49)
[2019-12-28] MEDS ORDERED: ACETAMINOPHEN 1000MG 100ML IV BTL (OFIRMEV) (J0131 PER 10MG) As Ordered ONE (08:05)
[2019-12-28] MEDS ORDERED: HYDROmorphone HCL 2 MG/ML 1ML VIAL (J1170) As Ordered ONE (08:53)
[2019-12-28] MEDS ORDERED: ONDANSETRON 4MG/2ML VIAL IV PRN ×2 (09:45)
[2019-12-28] MEDS ORDERED: HYDROMORPHONE HCL 0.5 MG/ 0.5 ML SYRINGE (J1170 PER 1) IV PRN (09:45)
[2019-12-28] MEDS ORDERED: KETOROLAC 30 MG/ML 1ML VIAL IV PRN ×3 (09:45→16:00)
[2019-12-28] MEDS ORDERED: LR 1,000 ML IV SCH (09:45)
[2019-12-28] MEDS: oxyCODONE 5MG TAB PO PRN ×2 (09:46→10:19)
[2019-12-28] MEDS: fentaNYL 100 MCG/2 ML INJECTION (J3010) IV PRN ×2 (09:57→10:10)
[2019-12-28] MEDS ORDERED: PERCOCET 5MG/325MG TAB PO PRN (10:30)
--- NOTE | 2019-12-28 11:38 | ROOPDOC ---
[facility] Report Of Operation Report of Operation DATE OF PROCEDURE: 12/28/19 PREPROCEDURE DIAGNOSES: history of acute cholecystitis, chronic cholecystitis. POSTPROCEDURE DIAGNOSES: same. PROCEDURE: Robotic Assisted Laparoscopic Cholecystectomy with ICG use for biliary tree identification. SURGEON: Jewel Leach MD COMPUTERIZED MILL MILL RECORDER: Jenelle Velasco NP Ms. Velasco assisted with port placement, management of the instruments and robotic arms on the field while I was at the surgeon's console, extraction of the gallbladder and closure of skin incision ANESTHESIA: General Anesthesia, bilateral transversus abdominis plane block using combination of 1/4% Marcaine and 1% lidocaine under laparoscopic guidance ESTIMATED BLOOD LOSS: Approximately 10 mL. COMPLICATIONS: none. REMARKS: Patient is a 64-year-old female who was admitted about 6 weeks prior with severe acute cholecystitis and not treated with percutaneous cholecystostomy with improvement of her symptoms. She is now brought in today for interval cholecystectomy. PROCEDURE NOTE: Moderately distended gallbladder, mildly thickened wall with scarring consistent with the prior cholecystostomy. Cholecystostomy tube present. ICG and firefly did not transilluminate the upper part of the gallbladder, partially the lower portion of the gallbladder and fully the cystic duct and common bile duct. DESCRIPTION OF PROCEDURE: Patient was given a dose levaquin 500 mg IV preoperatively for prophylaxis, 5 mg of ICG IV followed by 10 mL NS flush int he preop area. She was brought to the operating room, laid supine on the table, compression boots placed for DVT prophylaxis. General endotracheal anesthesia started. An additional 2.5 mg ICG is given through her cholecystostomy tube prior to it being clamped. Her abdomen then prepped and draped in usual sterile fashion. Surgical timeout was performed prior to confirm right procedure, right patient identification and other necessary information prior to starting surgery. I initially tried and 3 lateral and inferior to the umbilicus but was having difficulty getting into the abdomen and insufflating. I tried a left upper macie drant entry at the palmers point. Veress needle was inserted. Proper placement confirmed with saline drop technique. CO2 insufflation started to pressure 15 mmHg. Using the prior umbilical incision an 8 mm robotic trochar was placed under direct vision laparoscope. The area underneath the insertion site and the Veress needle insertion site at the left upper quadrant was inspected and no injury found. She was then placed in 8 reverse Trendelenburg. Under direct vision 3 more 8 mm trochars were placed along a row at level to the camera port site at the anterior axillary line, right midclavicular line and left mid clavicular line. A bilateral transversus abdominis plane block was then performed bilaterally using the lidocaine/marcaine mixture under laparoscopic guidance. The [place] robot tower was then maneuvered in place and the trochards docked to the robot. I used a prograsp, fenestrated bipolar, and hook cautery for the procedure with a 30 robotic camera. I unscrubbed and assumed control of the camera and instruments at the surgeon's console. Operative findings: The course of the cholecystostomy tube is noted at the inferior edge of the liver. Some flimsy adhesions between the liver and anterior abdominal wall along this area is noted. The omentum was draped on top of this portion of the liver. Gallbladder is noted the moderately distended, the fundus portion and upper thir d is moderately thickened getting less thickened at the distal third of the body. There is some moderate amount of fatty tissue along the course of the lower body. The infundibulum itself wasn't too well defined. Using firefly with ICG on I could see the course of the cystic duct as well as the common bile duct but the gallbladder did not fully transilluminate. Liver slightly enlarged, mildly fatty replaced overall smooth in contour. The omental adhesions were lysed with cautery to expose the gallbladder. The cholecystostomy tube and its tract was likewise opened up and removed. The entry point to the liver was cauterized. The fundus of the gallbladder was grasped and the gallbladder is elevated superiorly exposing the neck of the gallbladder. The peritoneum overlying the area is opened up and dissected free both anteriorly and posteriorly to help with retraction of the gallbladder. The hepatocystic triangle was approached and dissected using hook cautery and firely visualization of the cystic duct. There was good illumination of the course of the cystic duct. The wall of the gallbladder appears midly thickened. The cystic duct was identified coming off from the neck of the gallbladder. This was circumferentially dissected. The cystic artery was identified in its usual position medially behind a mildly enlarged lymph node of Calot. This was similarly circumferentially dissected off surrounding adipose tissue. We continued posterior dissection proximally at the neck of gallbladder to dissect the posterior wall of the gallbladder off the liver plate until a critical view of safety was achieved whereby only the previously identified duct and artery coursing through the neck the gallbladder(photodocumentation done.) Well cauterizing posteriorly a had a leak at the neck of the gallbladder so I decided to go further down the course of the cystic duct. At this point the the cystic artery was most accessible and this was clipped 2 times and divided in between the hemlock clips. After again checking her anatomy and verifying with firely the course of thecystic duct and common bile duct, this was also clipped and divided with 2 clips remaining at the cystic duct stump. The rest of the gallbladder was then dissected free of the gallbladder bed using Bovie cautery. The gallbladder was then placed in an Endo Catch bag and retrieved outside through the right axillary port site with partial enlargement of the port site by my assistant store director to accomodate the gallbladder. The clips and liver bed was inspected for bleeding and bile leakage and none found. I closed the extraction site with a 2-0 vloc stitch. The abdomen was deflated, The trochars undocked, the robot removed from the field. Rest of the skin incisions closed with 4-0 Monocryl in subcuticular fashion. Dermabond placed to cover the incisions.. Patient was awakened, extubated and brought to recovery room stable. . JEWEL LEACH MD Dec 28, 2019 11:38
[2019-12-28 13:50] VITALS: BP 134/66
== END 2019-12-28 14:30 | disposition home or self-care (01) ==
LOC: M SDC 06:08
PROVIDERS: ATTEND Surgery
DX: K80.10 Calculus of gallbladder with chronic cholecystitis without obstruction (principal); K57.92 Diverticulitis of intestine, part unspecified, without perforation or abscess without bleeding; K21.9 Gastro-esophageal reflux disease without esophagitis; J45.909 Unspecified asthma, uncomplicated; Z79.899 Other long term (current) drug therapy; Z88.0 Allergy status to penicillin
CPT/HCPCS: 47563; 64489; 88304; J0131; J1100; J1170; J1885; J1956; J2250; J2405; J2765; J3010; S2900

== ENCOUNTER → 2020-02-02 | Outpatient (CLI) | payer OTHER ==
[~2020-02-02] MED LIST changes: +E-Z-GAS II EFFERVESCENT PACKET (SODIUM BICARB./CITRIC ACID/SIMETHICONE) As Ordered ONE; +E-Z-HD 98% w/w 340GM SUSP BTL As Ordered ONE; +E-Z-PAQUE 96% w/w SUSP 176GM BTL As Ordered ONE; +MILKSUS3 PO
--- NOTE | 2020-02-02 15:04 | REP ---
INDICATION: RUQ ABD PAIN. COMPARISON: None TECHNIQUE: This procedure was performed by Yesenia Davis, [facility], under the direct supervision of Dr. Vergara. Images were reviewed with Dr. Vergara prior to dictation. Liquid barium and gas producing crystals were given in the erect position, as well as liquid barium in the prone oblique position in order to perform a double contrast upper GI examination. Additionally liquid barium was given at the end of the examination in order to perform a small-bowel follow-through. FINDINGS: The senior product analyst film shows no organomegaly or pathological masses. The intestinal gas pattern is unremarkable. The oral and pharyngeal stages of deglutition were unremarkable. Esophageal transport is prompt and efficient and there is no evidence of esophagitis, stricture, or mucosal ring. There is a small hiatal hernia. There is no gastroesophageal reflux noted . The stomach conte are normally outlined. The rugal folds are smooth and regular. There is no gastritis, neoplasm, or ulcerative disease. The duodenal conte are normally outlined. The mucosal folds are smooth and regular. There is no duodenitis, peptic ulcer disease or neoplasm. The visualized portion of the proximal small bowel appears normal in course and caliber. The barium column was followed through the small bowel to the level of the terminal ileum. Small bowel transit time is approximately 60 minutes. During fluoroscopy gentle palpation shows all loops are freely movable and pliable. There is no fixed angulated loops. The appendix is visualized the small bowel mucosal pattern is normal in course and caliber. There is no transition to suggest a partial small bowel obstruction. Spot filming of the terminal ileum shows it to be unremarkable. IMPRESSION: Small hiatal hernia. Otherwise unremarkable upper GI and small-bowel follow-through exam. 0.5 minutes of fluoroscopy time was utilized for this procedure. Some fluoroscopic images are performed with last image hold technology. These images require no additional radiation. <Electronically signed by Yesenia Davis > 02/02/20 1351 <Electronically signed by Nader Vergara > 02/02/20 1500
== END ==
LOC: M RAD 09:15
PROVIDERS: ATTEND Internal Medicine Gastroenterology
DX: R10.11 Right upper quadrant pain (principal); K44.9 Diaphragmatic hernia without obstruction or gangrene

== ENCOUNTER → 2020-02-11 | Outpatient (CLI) | payer OTHER ==
[~2020-02-11] MED LIST changes: -E-Z-GAS II EFFERVESCENT PACKET (SODIUM BICARB./CITRIC ACID/SIMETHICONE) As Ordered ONE; -E-Z-HD 98% w/w 340GM SUSP BTL As Ordered ONE; -E-Z-PAQUE 96% w/w SUSP 176GM BTL As Ordered ONE; +GASTROGRAFIN SOLUTION 30ML (Q9963) As Ordered ONE; +ISOVUE-370 76% 100ML VIAL As Ordered ONE
--- NOTE | 2020-02-11 17:17 | REP ---
INDICATION: R UPPER QUAD PAIN. COMPARISON: Abdomen and pelvis CT dated 11/04/2019. TECHNIQUE: The patient has had an interim cholecystectomy since the prior CT study. FINDINGS: Visualized lung haji are unremarkable. The hepatic parenchyma is homogeneous and unremarkable. The gallbladder is surgically absent. The common biliary duct measures 8 mm in diameter which is normal in a post cholecystectomy patient. The pancreas and spleen are normal size and unremarkable. The pancreatic duct is not dilated measuring 2 mm in diameter. There is no pancreas peripancreatic inflammation. There is no pseudocyst. The spleen is normal size, homogeneous and unremarkable. The adrenals are unremarkable. The kidneys are unremarkable. The right perinephric stranding identified previously has resolved. There is no bowel distention or obstruction. There is extremely dense barium in the rectosigmoid colon. I note the patient had an upper gastrointestinal series on 02/02/2020. The upper gastrointestinal surgeon is unremarkable except for a small hiatal hernia. Pelvis: Beam hardening artifact from the dense barium in the rectosigmoid colon obscures the appendix, uterus and adnexa. No definite pelvic ascites or adenopathy are identified other large portions of the pelvis are obscured. IMPRESSION: There is no adenopathy, ascites, focal fluid collection to suggest abscess, mesenteric inflammation, bowel distention or obstruction. There has been a cholecystectomy in the interim from the prior CT study. Dense parenchyma in the rectosigmoid colon next disc yours large portions of the pelvis occluding the appendix, uterus and adnexa. There is no bowel distention or obstruction. <Electronically signed by Roger Quiñonez > 02/11/20 1355
== END ==
LOC: M RAD 13:09
PROVIDERS: ATTEND Internal Medicine Gastroenterology
DX: R10.11 Right upper quadrant pain (principal)
CPT/HCPCS: 74177; Q9963; Q9967

== ENCOUNTER → 2020-03-22 | Outpatient (REF) | payer OTHER ==
[~2020-03-22] MED LIST changes: +GABA-282 PO; -GABA-843 PO; -GASTROGRAFIN SOLUTION 30ML (Q9963) As Ordered ONE; -ISOVUE-370 76% 100ML VIAL As Ordered ONE
== END ==
LOC: M LAB REF 16:24
PROVIDERS: ATTEND Internal Medicine
DX: M15.9 Polyosteoarthritis, unspecified (principal)

== ENCOUNTER → 2020-05-06 | Outpatient (CLI) | payer OTHER ==
[~2020-05-06] MED LIST changes: +PANT20TA6 PO; +TGTCAP PO; +VITMTA PO
== END ==
LOC: M LABSMTC 10:16
PROVIDERS: ATTEND Anesthesiology
DX: Z01.812 Encounter for preprocedural laboratory examination (principal); Z20.822 Contact with and (suspected) exposure to COVID-19

== ENCOUNTER 2020-05-11 07:29 | Day surgery (SDC) | payer OTHER ==
[~2020-05-11] VITALS: Ht 167.6 cm; Wt 70.8 kg
[~2020-05-11 07:29] MED LIST changes: +NS 1,000 ML IV ONE
[2020-05-11] MEDS ORDERED: propofoL 200 MG/20 ML VIAL As Ordered ONE (08:23)
[2020-05-11] MEDS ORDERED: LIDOCAINE 2% 100MG/5ML SDV (FOR ANES.) As Ordered ONE (08:23)
--- NOTE | 2020-05-11 09:38 | ROOR ---
Patient Name: Asha Beck Procedure Date: 05/11/2020 8:49 AM Date of : 1955 Age: 64 Room: [facility] Gender: Female Note Status: Finalized Procedure: Colonoscopy Indications: Screening for colorectal malignant neoplasm Providers: Elio Samano MD Referring MD: Jeanna ELY MD Requesting Provider: Medicines: Monitored Anesthesia Care Complications: No immediate complications. Procedure: Pre-Anesthesia Assessment: - Prior to the procedure, a History and Physical was performed, and patient medications and allergies were reviewed. The patient is competent. The risks and benefits of the procedure and the sedation options and risks were discussed with the patient. All questions were answered and informed consent was obtained. Patient identification and proposed procedure were verified by the physician, the nurse and the anesthesiologist in the procedure room. Mental Status Examination: alert and oriented. Airway Examination: normal oropharyngeal airway and neck mobility. Respiratory Examination: clear to auscultation. CV Examination: normal. Prophylactic Antibiotics: The patient does not require prophylactic antibiotics. Prior Anticoagulants: The patient has taken no previous anticoagulant or antiplatelet agents. ASA Grade Assessment: II - A patient with mild systemic disease. After reviewing the risks and benefits, the patient was deemed in satisfactory condition to undergo the procedure. The anesthesia plan was to use monitored anesthesia care (MAC). Immediately prior to administration of medications, the patient was re-assessed for adequacy to receive sedatives. The heart rate, respiratory rate, oxygen saturations, blood pressure, adequacy of pulmonary ventilation, and response to care were monitored throughout the procedure. The physical status of the patient was re-assessed after the procedure. The Colonoscope was introduced through the anus and advanced to the terminal ileum, with identification of the appendiceal orifice and IC valve. The colonoscopy was performed without difficulty. The patient tolerated the procedure well. The quality of the bowel preparation was good. The terminal ileum, ileocecal valve, appendiceal orifice, and rectum were photographed. Scope insertion time was 2 minutes. Scope withdrawal time was 9 minutes. The total duration of the procedure was 12 minutes. Findings: The perianal and digital rectal examinations were normal. The terminal ileum appeared normal. Multiple small and large-mouthed diverticula were found from sigmoid to descending colon. There was no evidence of diverticular bleeding. Non-bleeding external and internal hemorrhoids were found during retroflexion. The hemorrhoids were medium-sized. Impression: - The examined portion of the ileum was normal. - Moderate diverticulosis from sigmoid to descending colon. There was no evidence of diverticular bleeding. - Non-bleeding external and internal hemorrhoids. - No specimens collected. Recommendation: - Patient has a contact number available for emergencies. The signs and symptoms of potential delayed complications were discussed with the patient. Return to normal activities tomorrow. Written discharge instructions were provided to the patient. - High fiber diet. - Continue present medications. - Use fiber, for example Citrucel, Fibercon, Konsyl or Metamucil. - Repeat colonoscopy in 10 years for screening purposes. - Return to GI clinic if persistent symptoms or new symptoms. - Return to primary care physician. Procedure Code(s): --- Professional --- 26416, Colonoscopy, flexible; diagnostic, including collection of specimen(s) by brushing or washing, when performed (separate procedure) Diagnosis Code(s): --- Professional --- Z12.11, Encounter for screening for malignant neoplasm of colon K64.8, Other hemorrhoids K57.30, Diverticulosis of large intestine without perforation or abscess without bleeding CPT copyright 2019 [employer]. All rights reserved. The codes documented in this report are preliminary and upon chiropractic practice manager review may be revised to meet current compliance requirements. Elio Samano MD Elio Samano MD 05/11/2020 9:38:27 AM Electronically signed by Elio Samano MD Number of Addenda: 0 Note Initiated On: 05/11/2020 8:49 AM Estimated Blood Loss: Estimated blood loss was minimal.
[2020-05-11 09:40] VITALS: BP 115/74
== END 2020-05-11 09:53 | disposition home or self-care (01) ==
LOC: M OPP 07:29
PROVIDERS: ATTEND Internal Medicine Gastroenterology
DX: Z12.11 Encounter for screening for malignant neoplasm of colon (principal); K57.30 Diverticulosis of large intestine without perforation or abscess without bleeding; K64.8 Other hemorrhoids; K21.9 Gastro-esophageal reflux disease without esophagitis; M19.90 Unspecified osteoarthritis, unspecified site; J45.909 Unspecified asthma, uncomplicated; G50.0 Trigeminal neuralgia; G43.909 Migraine, unspecified, not intractable, without status migrainosus; M06.9 Rheumatoid arthritis, unspecified; K57.90 Diverticulosis of intestine, part unspecified, without perforation or abscess without bleeding; Z88.0 Allergy status to penicillin; Z88.5 Allergy status to narcotic agent; Z79.899 Other long term (current) drug therapy; Z80.3 Family history of malignant neoplasm of breast

== ENCOUNTER → 2021-05-06 | Day surgery (SDC) | payer OTHER ==
[~2021-05-06] VITALS: Ht 167.6 cm; Wt 72.7 kg
[~2021-05-06] MED LIST changes: +ALBU8.5H; -D31000TA2 PO; +GABA-283 PO; -GABA-845 PO; +GLUCAGON INJ 1MG VIAL IV STA; +HOME MED LIST COMPLETE! XX SCH; +KETOROLAC 30 MG/ML 1ML VIAL IV PRN; +LIDOCAINE 2% 100MG/5ML SDV (FOR ANES.) As Ordered ONE; +LR 1,000 ML IV SCH; +MIDAZOLAM INJ 2MG/2ML VIAL (J2250 PER 1MG) As Ordered ONE; -NABU-53; -NABU-53 PO; +NABU-73; +NABU-73 PO; +NITROGLYCERIN 0.4 MG SUBL TABLET SL STA; -NS 1,000 ML IV ONE; +ONDANSETRON 4MG/2ML VIAL As Ordered ONE; +ONDANSETRON 4MG/2ML VIAL IV PRN; +PHENYLephrine 500MCG 5ML (100MCG/ML) SYRINGE As Ordered ONE; +ROCURONIUM BROMIDE 50 MG/5 ML VIAL As Ordered ONE; +SUGAMMADEX SODIUM 500 MG/5 ML VIAL (BRIDION) As Ordered ONE; +VITA100093 PO; +dexameTHASONE 4 MG/ML 1ML VIAL (J1100 PER 1MG) As Ordered ONE; +fentaNYL 100 MCG/2 ML INJECTION As Ordered ONE; +propofoL 200 MG/20 ML VIAL As Ordered ONE
[2021-05-06 20:20] LABS: RSV AMPLIFICATION NEGATIVE (NEGATIVE)
[2021-05-06 22:20] VITALS: BP 132/70
== END | disposition home or self-care (01) ==
LOC: M ED 17:40 → M SDC 20:44 → M ED 20:56
PROVIDERS: ATTEND Surgery
DX: T18.128A Food in esophagus causing other injury, initial encounter (principal); K22.89 Other specified disease of esophagus; Y92.89 Other specified places as the place of occurrence of the external cause; J45.909 Unspecified asthma, uncomplicated; G50.0 Trigeminal neuralgia; Z79.51 Long term (current) use of inhaled steroids; Z88.0 Allergy status to penicillin; Z88.5 Allergy status to narcotic agent
CPT/HCPCS: 43247; 87631; 96374; 99285; J1100; J1610; J2250; J2370; J2405; J3010

== ENCOUNTER → 2021-06-21 | Outpatient (CLI) | payer MEDICARE, OTHER ==
[~2021-06-21] MED LIST changes: -GLUCAGON INJ 1MG VIAL IV STA; -HOME MED LIST COMPLETE! XX SCH; -KETOROLAC 30 MG/ML 1ML VIAL IV PRN; -LIDOCAINE 2% 100MG/5ML SDV (FOR ANES.) As Ordered ONE; -LR 1,000 ML IV SCH; -MIDAZOLAM INJ 2MG/2ML VIAL (J2250 PER 1MG) As Ordered ONE; +NABU-71; -NITROGLYCERIN 0.4 MG SUBL TABLET SL STA; -ONDANSETRON 4MG/2ML VIAL As Ordered ONE; -ONDANSETRON 4MG/2ML VIAL IV PRN; -PHENYLephrine 500MCG 5ML (100MCG/ML) SYRINGE As Ordered ONE; -ROCURONIUM BROMIDE 50 MG/5 ML VIAL As Ordered ONE; -SUGAMMADEX SODIUM 500 MG/5 ML VIAL (BRIDION) As Ordered ONE; -dexameTHASONE 4 MG/ML 1ML VIAL (J1100 PER 1MG) As Ordered ONE; -fentaNYL 100 MCG/2 ML INJECTION As Ordered ONE; -propofoL 200 MG/20 ML VIAL As Ordered ONE
== END ==
LOC: M LABSMTC 09:12
PROVIDERS: ATTEND Anesthesiology
DX: Z01.812 Encounter for preprocedural laboratory examination (principal); Z20.822 Contact with and (suspected) exposure to COVID-19

== ENCOUNTER 2021-06-26 08:23 | Day surgery (SDC) | payer MEDICARE, OTHER ==
[~2021-06-26] VITALS: Ht 170.2 cm; Wt 71.4 kg
[~2021-06-26 08:23] MED LIST changes: +LIDOCAINE 2% 100MG/5ML SDV (FOR ANES.) As Ordered ONE; +NS 1,000 ML IV ONE; +propofoL 200 MG/20 ML VIAL As Ordered ONE
[2021-06-26] MEDS ORDERED: fentaNYL 100 MCG/2 ML INJECTION As Ordered ONE (10:17)
[2021-06-26] MEDS ORDERED: ONDANSETRON 4MG/2ML VIAL As Ordered ONE (10:25)
[2021-06-26 11:11] VITALS: BP 124/58
== END 2021-06-26 11:20 | disposition home or self-care (01) ==
LOC: M OPP 08:23
PROVIDERS: ATTEND Surgery
DX: K22.89 Other specified disease of esophagus (principal); K31.7 Polyp of stomach and duodenum; Z79.899 Other long term (current) drug therapy; Z88.0 Allergy status to penicillin; Z88.5 Allergy status to narcotic agent
CPT/HCPCS: 43239; 88305; J2405; J3010

== ENCOUNTER → 2021-08-03 | Outpatient (CLI) | payer MEDICARE, OTHER ==
[~2021-08-03] MED LIST changes: -LIDOCAINE 2% 100MG/5ML SDV (FOR ANES.) As Ordered ONE; -NS 1,000 ML IV ONE; -propofoL 200 MG/20 ML VIAL As Ordered ONE
== END ==
LOC: M WHC 08:33
PROVIDERS: ATTEND Internal Medicine
DX: Z12.31 Encounter for screening mammogram for malignant neoplasm of breast (principal); M81.0 Age-related osteoporosis without current pathological fracture

== ENCOUNTER → 2021-11-28 | Outpatient (CLI) | payer MEDICARE, OTHER ==
[2021-11-28 10:21] LABS: BASO % 0.7 % (0.0-1.0); EOS # 0.1 10^3/uL (0.0-0.5); EOS % 1.6 % (0.0-3.0); HEMATOCRIT 48.7 % (36.0-47.0); HEMOGLOBIN 15.1 g/dl (12.0-15.5); LYMPH # 1.2 10^3/uL (1.5-5.0); LYMPH % 22.3 % (24.0-44.0); MEAN CORPUSCULAR VOLUME 93.5 fl (80.0-96.0); MONO # 0.4 10^3/uL (0.0-0.8); MONO % 7.8 % (2.0-8.0); NEUTROPHILS # 3.7 10^3/uL (1.5-8.5); NEUTROPHILS % 67.2 % (36.0-66.0); PLATELET COUNT, AUTOMATED 240 10^3/uL (150-450); RED BLOOD COUNT 5.21 10^6/uL (4.00-5.40); WHITE BLOOD COUNT 5.5 10^3/uL (4.0-10.0)
[2021-11-28 11:09] LABS: ALBUMIN 4.1 GM/DL (3.2-5.2); ALT/SGPT 21 U/L (12-78); BILIRUBIN,TOTAL 0.4 MG/DL (0.2-1.0); BLOOD UREA NITROGEN 12 MG/DL (7-18); CALCIUM LEVEL 9.9 MG/DL (8.8-10.2); CARBON DIOXIDE LEVEL 29 MEQ/L (21-32); CHLORIDE LEVEL 106 MEQ/L (98-107); CREATININE FOR GFR 0.88 MG/DL (0.55-1.30); GLOMERULAR FILTRATION RATE > 60.0 (>45); GLUCOSE, FASTING 111 MG/DL (70-100); POTASSIUM SERUM 4.4 MEQ/L (3.5-5.1); RHEUMATOID FACTOR QUANT < 10.0 IU/ML (<15.0); SODIUM LEVEL 138 MEQ/L (136-145); THYROID STIMULATING HORMONE 0.679 uIU/ML (0.358-3.740); TOTAL PROTEIN 7.2 GM/DL (6.4-8.2)
[2021-11-28 11:30] LABS: ERYTHROCYTE SEDIMENTATION RATE 2 mm/hr (0-30)
[2021-11-30 12:06] LABS: ALBUMIN 4.62 GM/DL (3.29-5.55); ALBUMIN % 64.2 % (55.8-66.1); ALPHA-1-GLOBULIN % 3.5 % (2.9-4.9); ALPHA-1-GLOBULINS 0.25 GM/DL (0.17-0.41); ALPHA-2-GLOBULINS 0.72 GM/DL (0.42-0.99); BETA-1-GLOBULINS 0.39 GM/DL (0.28-0.60); BETA-1-GLOBULINS % 5.4 % (4.7-7.2); BETA-2-GLOBULINS 0.32 GM/DL (0.19-0.55); BETA-2-GLOBULINS % 4.4 % (3.2-6.5); GAMMA GLOBULIN % 12.5 % (11.1-18.8)
[2021-11-30 15:24] LABS: VITAMIN B12 LEVEL 308 PG/ML (247-911)
== END ==
LOC: M LAB 09:08
PROVIDERS: ATTEND Psychiatry & Neurology Neurology
DX: G31.84 Mild cognitive impairment of uncertain or unknown etiology (principal)

== ENCOUNTER → 2022-05-22 | Outpatient (REF) | payer MEDICARE, OTHER | LOC: M LAB REF 12:02 | PROVIDERS: ATTEND Internal Medicine | DX: M15.9 Polyosteoarthritis, unspecified (principal) ==

== ENCOUNTER → 2023-05-05 | Outpatient (REF) | payer MEDICARE, OTHER ==
[~2023-05-05] MED LIST changes: -GABA-283 PO; +GABA-284 PO
== END ==
LOC: M LAB REF 12:09
PROVIDERS: ATTEND Internal Medicine
DX: M15.9 Polyosteoarthritis, unspecified (principal)

== ENCOUNTER → 2023-05-26 | Outpatient (CLI) | payer MEDICARE, OTHER | LOC: M WHC 10:05 | PROVIDERS: ATTEND Internal Medicine | DX: Z12.31 Encounter for screening mammogram for malignant neoplasm of breast (principal) ==

== ENCOUNTER → 2023-06-18 | Outpatient (CLI) | payer MEDICARE, OTHER | LOC: M WHC 10:18 | PROVIDERS: ATTEND Internal Medicine | DX: Z12.31 Encounter for screening mammogram for malignant neoplasm of breast (principal); N63.15 Unspecified lump in the right breast, overlapping quadrants | CPT/HCPCS: 77065; G0279 ==

== ENCOUNTER → 2023-07-07 | Outpatient (CLI) | payer MEDICARE, OTHER | LOC: M PLAIMG 16:01 | PROVIDERS: ATTEND Internal Medicine | DX: R05.9 Cough, unspecified (principal) ==

== ENCOUNTER → 2023-12-29 | Outpatient (REF) | payer MEDICARE, OTHER ==
[~2023-12-29] MED LIST changes: +GABA-1172 PO; -GABA-282 PO
[2023-12-31 07:47] LABS: ANA SCREEN, IFA NEGATIVE (NEGATIVE)
== END ==
LOC: M LAB REF 12:40
PROVIDERS: ATTEND Internal Medicine
DX: M25.50 Pain in unspecified joint (principal)

== ENCOUNTER → 2024-05-21 | Outpatient (REF) | payer MEDICARE, OTHER | LOC: M LAB REF 12:45 | PROVIDERS: ATTEND Internal Medicine | DX: M25.50 Pain in unspecified joint (principal) ==

== ENCOUNTER → 2024-09-29 | Outpatient (REF) | payer MEDICARE, OTHER | LOC: M LAB REF 12:16 | PROVIDERS: ATTEND Physician Assistant Medical | DX: R21 Rash and other nonspecific skin eruption (principal); R53.83 Other fatigue ==

== ENCOUNTER → 2024-10-19 | Outpatient (REF) | payer MEDICARE, OTHER | LOC: M LAB REF 12:12 | PROVIDERS: ATTEND Internal Medicine | DX: M06.4 Inflammatory polyarthropathy (principal) ==

== ENCOUNTER → 2024-11-11 | Outpatient (REF) | payer MEDICARE, OTHER | LOC: M LAB REF 12:43 | DX: N39.0 Urinary tract infection, site not specified (principal) ==

== ENCOUNTER → 2024-11-11 | Outpatient (CLI) | payer MEDICARE, OTHER | LOC: M RAD 11:44 | DX: R10.32 Left lower quadrant pain (principal); N20.0 Calculus of kidney; K42.9 Umbilical hernia without obstruction or gangrene; K57.90 Diverticulosis of intestine, part unspecified, without perforation or abscess without bleeding; N39.0 Urinary tract infection, site not specified ==

== ENCOUNTER → 2024-11-22 | Outpatient (REF) | payer MEDICARE, OTHER | LOC: M LAB REF 11:54 | PROVIDERS: ATTEND Internal Medicine | DX: M06.4 Inflammatory polyarthropathy (principal) ==